=== PATIENT | female | born 1990 | race American Indian/Alaskan Native ===

== ENCOUNTER 2016-12-02 04:44 | Emergency (ER) | payer MEDICAID, OTHER ==
--- NOTE | 2016-12-02 04:54 | EDM.PDOC ---
ED HISTORY OF PRESENT ILLNESS - General Chief Complaint: Respiratory Problem Stated Complaint: TROUBLE BREATHING Time Seen by Provider: 12/02/16 04:50 Source of Information: Reports: Patient History Limitations: Reports: No limitations - History of Present Illness INITIAL COMMENTS - FREE TEXT/NARRATIVE: c/o increased cough tonight, using both inhaler and neb. no fevers, Exposed to strep. 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) Other OB/BYN History: C/S x 2 Musculoskeletal History: Reports: None Neurological History: Reports: None Psychiatric History: Reports: Anxiety, Panic attack Endocrine/Metabolic History: Reports: Obesity/BMI 30+ Hematologic History: Reports: None Immunologic History: Reports: None Oncologic (Cancer) History: Reports: None Dermatologic History: Reports: None Social & Family History - Family History Family Medical History: Noncontributory - Tobacco Use Smoking Status *Q: Current Some Day Smoker Years of Tobacco use: 8 Packs/Tins Daily: 3 Second Hand Smoke Exposure: Yes - Caffeine Use Caffeine Use: Reports: Coffee, Energy drinks, Soda - Alcohol Use Days Per Week of Alcohol Use: 1 Number of Drinks Per Day: 12 Total Drinks Per Week: 12 - Recreational Drug Use Recreational Drug Use: No Drug Use in Last 12 Months: Yes Recreational Drug Type: Reports: Methamphetamine Recreational Drug Use Frequency: Socially - Sexual History Sexual History: Reports: Sexually active - Living Situation & Occupation Living situation: Reports: with family Occupation: unemployed ED ROS GENERAL - Review of Systems Review Of Systems: See Below Constitutional: Reports: no symptoms HEENT: Reports: Sinus problem, Throat pain Respiratory: Reports: cough (for one week using inhaler and neb both.) Cardiovascular: Reports: No symptoms GI/Abdominal: Reports: No symptoms Musculoskeletal: Reports: no symptoms Skin: Reports: no symptoms Neurological: Reports: no symptoms ED EXAM, GENERAL - Physical Exam Exam: See Below Exam Limited By: No limitations General Appearance: alert, no apparent distress Ears: normal external exam, normal TMs Ear Exam: bilateral ear: TM normal Nose: normal inspection Throat/Mouth: Normal inspection Head: atraumatic, normocephalic Neck: normal inspection, non-tender, full range of motion Respiratory/Chest: no respiratory distress, lungs clear, normal breath sounds, other (dry cough). No: decreased breath sounds, crackles, rales, rhonchi, wheezing Cardiovascular: normal peripheral pulses, regular rate, rhythm (Female) Exam: Enlarged uterus Back Exam: normal inspection Extremities: normal inspection, normal range of motion Neurological: alert, oriented Psychiatric: normal affect Skin Exam: Warm, Dry, Intact, Normal color Course - Vital Signs Last Recorded V/S: Last Vital Signs Temp 96.2 F 12/02/16 04:48 Pulse 87 12/02/16 04:48 Resp 20 12/02/16 04:48 BP 125/84 12/02/16 04:48 Pulse Ox 100 12/02/16 04:48 - Orders/Labs/Meds Orders: Active Orders 24 hr Category Date Time Status CULTURE STREP A CONFIRMATION [RM] Routine Lab 12/02/16 05:01 Results STREP SCRN A RAPID W CULT CONF [] Routine Lab 12/02/16 05:01 Results Meds: Medications Discontinued Medications Generic Name Dose Route Start Last Admin Trade Name Zohreh PRN Reason Stop Dose Admin Guaifenesin 100 mg 12/02/16 06:20 12/02/16 06:24 Robitussin PO 12/02/16 06:21 100 mg ONETIME ONE Administration Departure - Departure Time of Disposition: 06:04 Disposition: Home, Self-Care 01 Condition: good Clinical Impression: Cough Upper respiratory infection Qualifiers: URI type: unspecified viral URI Qualified Code(s): J06.9 - Acute upper respiratory infection, unspecified Instructions: Upper Respiratory Infection, Adult, [id number] Forms: ED Department Discharge Additional Instructions: humidification albuterol nebulizer every 4 hours as needed avoid smoking areas clinic on Sunday robitussin 5 ml every 4 hours as needed for cough - My Orders Last 24 Hours: My Active Orders 12/02/16 05:01 CULTURE STREP A CONFIRMATION [RM] Routine STREP SCRN A RAPID W CULT CONF [] Routine - Assessment/Plan Last 24 Hours: My Active Orders 12/02/16 05:01 CULTURE STREP A CONFIRMATION [RM] Routine STREP SCRN A RAPID W CULT CONF [RM] Routine
[2016-12-02 04:56] VITALS: BP 125/84
[2016-12-02] MEDS ORDERED: guaiFENesin 100 MG/5 ML Soln 5 ML UD Cup PO ONE (06:20)
== END 2016-12-02 06:25 | disposition home or self-care (01) ==
LOC: DL.ED 04:44
DX: J06.9 Acute upper respiratory infection, unspecified (principal); F41.9 Anxiety disorder, unspecified; E66.9 Obesity, unspecified
CPT/HCPCS: 87081; 87430; 87804; 99283; A9270

== ENCOUNTER 2016-12-08 03:58 | Emergency (ER) | payer MEDICAID, OTHER ==
[2016-12-08 04:10] VITALS: BP 135/87
[2016-12-08] MEDS ORDERED: Benzonatate 100 MG Cap PO ONE (04:19)
[2016-12-08] MEDS ORDERED: Albuterol/Ipratropium 3.0-0.5 MG/3 ML Neb Soln NEB ONE (04:19)
[2016-12-08] MEDS ORDERED: methylPREDNISolone Sodium Succinate 125 MG/2 ML SDV IM ONE (04:19)
--- NOTE | 2016-12-08 04:30 | EDM.PDOC ---
ED HISTORY OF PRESENT ILLNESS - General Chief Complaint: Respiratory Problem Stated Complaint: CHEST CONGESTION Time Seen by Provider: 12/08/16 04:20 Source of Information: Reports: Patient History Limitations: Reports: No limitations - History of Present Illness INITIAL COMMENTS - FREE TEXT/NARRATIVE: states been sick with cough congestion past 2 weeks. been to ER & clinic had neg micro done here and given Rx @ clinic but still not better and been coughing till vomits. denies asthma Hx but was given neb since onset Sx. 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 (see below) Other OB/BYN History: C/S x 2 Musculoskeletal History: Reports: None Neurological History: Reports: None Psychiatric History: Reports: Anxiety, Panic attack Endocrine/Metabolic History: Reports: Obesity/BMI 30+ Hematologic History: Reports: None Immunologic History: Reports: None Oncologic (Cancer) History: Reports: None Dermatologic History: Reports: None Social & Family History - Family History Family Medical History: Noncontributory - Tobacco Use Smoking Status *Q: Current Some Day Smoker Years of Tobacco use: 8 Packs/Tins Daily: 3 Second Hand Smoke Exposure: Yes - Caffeine Use Caffeine Use: Reports: Soda - Alcohol Use Days Per Week of Alcohol Use: 1 Number of Drinks Per Day: 12 Total Drinks Per Week: 12 - Recreational Drug Use Recreational Drug Use: No Drug Use in Last 12 Months: Yes Recreational Drug Type: Reports: Methamphetamine Recreational Drug Use Frequency: Socially - Sexual History Sexual History: Reports: Sexually active - Living Situation & Occupation Living situation: Reports: with family Occupation: unemployed ED ROS GENERAL - Review of Systems Review Of Systems: ROS reveals no pertinent complaints other than HPI. ED EXAM, GENERAL - Physical Exam Exam: See Below Exam Limited By: No limitations General Appearance: alert, WD/WN, mild distress, other (cough spasms) Ears: hearing grossly normal Throat/Mouth: Normal voice, No airway compromise Head: atraumatic Neck: non-tender, full range of motion Respiratory/Chest: no respiratory distress, no accessory muscle use, decreased breath sounds, rhonchi, wheezing. No: retractions Cardiovascular: regular rate, rhythm GI/Abdominal: soft, non tender Neurological: alert, oriented, normal cognition, normal gait Psychiatric: tearful Skin Exam: Warm, Dry Lymphatic: no adenopathy Course - Vital Signs Last Recorded V/S: Last Vital Signs Temp 36.2 C 12/08/16 04:01 Pulse 118 H 12/08/16 04:01 Resp 23 H 12/08/16 04:01 BP 135/87 12/08/16 04:01 Pulse Ox 97 12/08/16 04:01 - Orders/Labs/Meds Orders: Active Orders 24 hr Category Date Time Status RT Aerosol Therapy [RC] ASDIRECTED Care 12/08/16 04:19 Ordered Meds: Medications Discontinued Medications Generic Name Dose Route Start Last Admin Trade Name Freq PRN Reason Stop Dose Admin Albuterol/Ipratropium 3 ml 12/08/16 04:19 12/08/16 04:27 Duoneb 3.0-0.5 Mg/3 Ml NEB 12/08/16 04:20 3 ml ONETIME ONE Administration Benzonatate 100 mg 12/08/16 04:19 12/08/16 04:27 Tessalon Perles PO 12/08/16 04:20 100 mg ONETIME ONE Administration Methylprednisolone Sodium Succinate 125 mg 12/08/16 04:19 12/08/16 04:27 Solu-Medrol IM 12/08/16 04:20 125 mg ONETIME ONE Administration - Re-Assessments/Exams Free Text/Narrative Re-Assessment/Exam: 12/08/16 04:30 s/p neb+solumedrol=much better. Departure - Departure Time of Disposition: 04:47 Disposition: Home, Self-Care 01 Condition: good Clinical Impression: Bronchospasm with bronchitis, acute Instructions: Bronchospasm, Adult, [id number] Forms: ED Department Discharge Additional Instructions: 1) rest as much as possible 2) drink lots of liquids 3) continue neb treatments 4) don't sleep flat at night rx given: medrol dospak tessalon pearles 100mg hs prn x 6 - My Orders Last 24 Hours: My Active Orders 12/08/16 04:19 RT Aerosol Therapy [RC] ASDIRECTED - Assessment/Plan Last 24 Hours: My Active Orders 12/08/16 04:19 RT Aerosol Therapy [RC] ASDIRECTED
== END 2016-12-08 05:25 | disposition home or self-care (01) ==
LOC: DL.ED 03:58
DX: J20.9 Acute bronchitis, unspecified (principal); F41.9 Anxiety disorder, unspecified; E66.9 Obesity, unspecified
CPT/HCPCS: 94640; 99283; A9270; J2930

== ENCOUNTER 2016-12-22 03:41 | Emergency (ER) | payer MEDICAID, OTHER ==
[2016-12-22 03:51] VITALS: BP 122/77
[2016-12-22] MEDS ORDERED: methylPREDNISolone Sodium Succinate 125 MG/2 ML SDV IVPUSH ONE (04:11)
--- NOTE | 2016-12-22 04:12 | EDM.PDOC ---
ED HISTORY OF PRESENT ILLNESS - General Chief Complaint: Respiratory Problem Stated Complaint: AMB Time Seen by Provider: 12/22/16 04:11 Source of Information: Reports: Patient History Limitations: Reports: No limitations - History of Present Illness INITIAL COMMENTS - FREE TEXT/NARRATIVE: 1 week h/o wheezing, been using nebs almost q2hr. feeling slightly better after EMS gave neb en route. 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) Other OB/BYN History: C/S x 2 Musculoskeletal History: Reports: None Neurological History: Reports: None Psychiatric History: Reports: Anxiety, Panic attack Endocrine/Metabolic History: Reports: Obesity/BMI 30+ Hematologic History: Reports: None Immunologic History: Reports: None Oncologic (Cancer) History: Reports: None Dermatologic History: Reports: None Social & Family History - Family History Family Medical History: Noncontributory - Tobacco Use Smoking Status *Q: Never Smoker Years of Tobacco use: 8 Packs/Tins Daily: 3 Second Hand Smoke Exposure: No - Caffeine Use Caffeine Use: Reports: Soda - Alcohol Use Days Per Week of Alcohol Use: 1 Number of Drinks Per Day: 12 Total Drinks Per Week: 12 - Recreational Drug Use Recreational Drug Use: No Drug Use in Last 12 Months: Yes Recreational Drug Type: Reports: Methamphetamine Recreational Drug Use Frequency: Socially - Sexual History Sexual History: Reports: Sexually active - Living Situation & Occupation Living situation: Reports: with family Occupation: unemployed ED ROS GENERAL - Review of Systems Review Of Systems: ROS reveals no pertinent complaints other than HPI. ED EXAM, GENERAL - Physical Exam Exam: See Below Exam Limited By: No limitations General Appearance: alert, WD/WN, mild distress, other (cough spasms) Ears: hearing grossly normal Throat/Mouth: Normal voice, No airway compromise Head: atraumatic Neck: non-tender, full range of motion Respiratory/Chest: no accessory muscle use, rhonchi, wheezing. No: accessory muscle use, retractions, splinting Cardiovascular: regular rate, rhythm GI/Abdominal: soft, non tender Neurological: alert, oriented, normal cognition, normal gait, no motor/sensory deficits Psychiatric: normal affect, normal mood Skin Exam: Warm, Dry Lymphatic: no adenopathy Course - Vital Signs Last Recorded V/S: Last Vital Signs Temp 36.2 C 12/22/16 03:50 Pulse 119 H 12/22/16 03:50 Resp 22 H 12/22/16 03:50 BP 122/77 12/22/16 03:50 Pulse Ox 99 12/22/16 03:50 - Orders/Labs/Meds Meds: Medications Discontinued Medications Generic Name Dose Route Start Last Admin Trade Name Freq PRN Reason Stop Dose Admin Methylprednisolone Sodium Succinate 125 mg 12/22/16 04:11 12/22/16 04:15 Solu-Medrol IVPUSH 12/22/16 04:12 125 mg ONETIME ONE Administration - Re-Assessments/Exams Free Text/Narrative Re-Assessment/Exam: 12/22/16 04:45 s/p IV solumed= much better now. Departure - Departure Time of Disposition: 04:45 Disposition: Home, Self-Care 01 Condition: good Clinical Impression: Exacerbation of asthma Instructions: Shortness of Breath, [id number] Forms: ED Department Discharge Additional Instructions: 1) continue nebs at home 2) follow up at clinic or recheck as needed rx given: medrol dospak
== END 2016-12-22 04:52 | disposition home or self-care (01) ==
LOC: DL.ED 03:41
DX: J45.901 Unspecified asthma with (acute) exacerbation (principal); E66.9 Obesity, unspecified
CPT/HCPCS: 96374; 99285; J2930

== ENCOUNTER 2017-04-28 22:16 | Inpatient (IN) | payer MEDICAID, OTHER ==
[~2017-04-28 22:16] MED LIST: Ketorolac 30 MG/ML SDV IVPUSH ONE; Morphine PF 1 MG/ML Amp ONE; Ondansetron 4 MG/2 ML SDV IV ONE; Oxytocin/Normal Saline 30 UNIT/500 ML BAG IV ONE; fentaNYL 100 MCG/2 ML SDV ONE
[2017-04-28] MEDS: Lactated Ringers 1,000 ML IV SCH ×2 (23:03→23:48)
[2017-04-28] MEDS ORDERED: ceFAZolin 2 GM in Premix Bag 1 BAG IV ONE (23:29)
[2017-04-28] MEDS ORDERED: Citric Acid/Sodium Citrate Solution 30 ML Cup PO ONE (23:29)
[2017-04-28] MEDS ORDERED: diphenhydrAMINE 50 MG/ML SDV IVPUSH PRN (23:30)
[2017-04-28] MEDS ORDERED: ePHEDrine 50 MG/ML SDV IVPUSH PRN (23:30)
[2017-04-28] MEDS ORDERED: Naloxone 2 MG/2 ML Syringe IVPUSH PRN (23:30)
[2017-04-28] MEDS ORDERED: Ondansetron 4 MG/2 ML SDV IV PRN (23:30)
[2017-04-28] MEDS ORDERED: Methylergonovine 0.2 MG/1 ML Amp IM PRN (23:30)
[2017-04-28] MEDS ORDERED: Oxytocin/Normal Saline 30 UNIT/500 ML BAG IV SCH (23:30)
[2017-04-28] MEDS ORDERED: Misoprostol 400 MCG (4 X 100 MCG TAB) RECTAL PRN (23:30)
[2017-04-28] MEDS ORDERED: Acetaminophen 325 MG Tab PO PRN (23:30)
[2017-04-28] MEDS ORDERED: Acetaminophen/oxyCODONE 325-5 MG Tab PO PRN (23:30)
[2017-04-28] MEDS ORDERED: Ibuprofen 800 MG Tab PO PRN (23:30)
[2017-04-28] MEDS ORDERED: Carboprost Tromethamine 250 MCG/1 ML Amp IM ONE (23:30)
[2017-04-28] MEDS ORDERED: Morphine PF 1 MG/ML Amp ONE (23:48)
[2017-04-28] MEDS ORDERED: Ondansetron 4 MG/2 ML SDV ONE (23:48)
[2017-04-28] MEDS ORDERED: fentaNYL 100 MCG/2 ML SDV ONE (23:48)
[2017-04-28] MEDS ORDERED: Phenylephrine 1% 10 MG/ML SDV ONE (23:49)
[2017-04-28] MEDS ORDERED: Ketorolac 30 MG/ML SDV ONE (23:49)
[2017-04-28] MEDS ORDERED: Propofol 200 MG/20 ML SDV ONE (23:49)
[2017-04-28] MEDS ORDERED: ePHEDrine 50 MG/ML SDV ONE (23:49)
[2017-04-28] MEDS ORDERED: Sodium Chloride 0.9% 100 ML ONE (23:49)
[2017-04-28] MEDS ORDERED: Succinylcholine 200 MG/10 ML MDV ONE (23:49)
[2017-04-28] MEDS ORDERED: Oxytocin/Normal Saline 60 UNIT/1,000 ML BAG ONE (23:53)
[2017-04-28] MEDS ORDERED: Oxytocin/Normal Saline 30 UNIT/500 ML BAG ONE (23:59)
[2017-04-29] MEDS ORDERED: Citric Acid/Sodium Citrate Solution 30 ML Cup ONE (00:07)
[2017-04-29] MEDS: Lactated Ringers 1,000 ML IV SCH ×3 (04:30→22:29)
[2017-04-29] MEDS: Ketorolac 30 MG/ML SDV IVPUSH SCH ×4 (07:32→19:27)
--- NOTE | 2017-04-29 08:44 | OR ---
DATE: 04/29/2017 ATTENDING SURGEON: Jonathan Osorio MD GREENS KEEPER SURGEON: Julio César Leo MD, PGY-III PREOPERATIVE DIAGNOSES: 1. Intrauterine at 37 weeks 2 days based on previous ultrasound. 2. Active labor. 3. Contractions with cervical change. 4. Previous section x2 with request for repeat low transverse section. 5. Group B Streptococcus negative. 6. Glucose intolerance. 7. Maternal anemia during . 8. History of reactive airway disease. 9. History of low-grade squamous intraepithelial lesion on Pap. 10.Positive tetrahydrocannabinol on urine drug screen at [facility] on 10/30/2016. 11. 3, para 2-0-0-2. POSTOPERATIVE DIAGNOSES: 1. Intrauterine at 37 weeks 2 days based on previous ultrasound. 2. Active labor. 3. Contractions with cervical change. 4. Previous section x2 with request for repeat low transverse section. 5. Group B Streptococcus negative. 6. Glucose intolerance. 7. Maternal anemia during . 8. History of reactive airway disease. 9. History of low-grade squamous intraepithelial lesion on Pap. 10.Positive tetrahydrocannabinol on urine drug screen at [facility] on 10/30/2016. 11. 3, para 3-0-0-3. 12.Viable female infant with scores of 7 and 8 at 1 and 5 minutes respectively. OPERATIVE PROCEDURE: Repeat low transverse section. ESTIMATED BLOOD LOSS: 600 mL. IV FLUIDS: LR 2500 mL and NS with pit at 300 mL. URINE OUTPUT: 100 mL. FINDINGS: Delivery of female infant with scores of 7 and 8 at 1 and 5 minutes respectively. Skin incision at 0043 hours. Uterine incision at 0051 hours. Viable female at 0052 hours. End of surgery at 0120 hours. INDICATION FOR PROCEDURE: Lilo Hernandez is a 27-year-old female with a history of repeat section, who presented in active labor with contractions and cervical change. Therefore, she was in active labor and recommendation for to proceed with section. Risks and benefits were discussed by myself and Dr. Osorio, and the patient wished to proceed with surgery at this time. DETAILS OF PROCEDURE: The patient was brought to the operating room. Spinal anesthetic was given. She was placed supine with a bump under her right side tilting her to the left. She was prepped and draped in standard sterile fashion. IV antibiotics were given. SCDs were placed. A procedural time-out was performed, and all were in agreement. She was prepped and draped in standard sterile fashion. A lower transverse abdominal incision was made through her previous scar. Electrocautery was used to dissect down to the muscle fascia. The muscle fascia was opened transversely using scissors curving cephalic at the lateral edges. The electrocautery was used to dissect the muscle off the anterior fascia superiorly and as well as inferiorly down to the pubic bone. The muscle was then in the midline. The peritoneum bluntly entered. A bladder flap was then created using Metzenbaum scissors and reflected inferiorly. A lower uterine incision was made through the outer layers and bluntly introduced into the uterine with return of clear amniotic fluid. The opening was then opened bluntly, and the infant was delivered. The cord was doubly clamped and cut, and the was handed off to Dr. Lin and nursery team. Pitocin was introduced, and uterine fundal massage was performed. The placenta was extracted without issue. There was no obvious placental tissue remaining. Lap pad used to debride the uterus. cervix was open. The uterus was closed in 2 layers, first running locking stitch with a #1 Vicryl, a second layer imbricating stitch with a #1 Vicryl. There was a small amount of inadequate hemostasis on the left side, which required a 2-0 vyslem-xb-oaofh stitch. Adequate hemostasis was obtained following the stitch. Andrew retractor was then removed. The gutters were thoroughly assessed, and there was no obvious blood in the gutters. The hemostasis was again reassured. The tubes and ovaries were normal appearing and without obvious pathology. One synofh-jy-kemlv 2-0 Vicryl was placed to reapproximate the muscle and peritoneum. The fascia was then closed with 0 looped PDS x2 starting in the edges and meeting in the middle and tying. The subcutaneous tissues were irrigated, and then the skin was stapled closed. Aquacel Ag dressing was placed. The patient was brought out of anesthesia and transferred to PACU in stable condition. Dr. Jonathan Osorio was present, scrubbed, and directed all portions of the procedure. [facility] /[id number] MTDD
[2017-04-29] MEDS: Simethicone 80 MG Tab.Chew PO PRN ×2 (09:23→19:29)
[2017-04-29] MEDS: Prenatal Multivitamin with Calcium/Folic Acid/Iron Tab PO SCH (09:23)
[2017-04-29] MEDS: Docusate Sodium 100 MG Cap PO PRN ×2 (09:23→19:30)
[2017-04-29] MEDS: Acetaminophen/oxyCODONE 325-5 MG Tab PO PRN (22:27)
[2017-04-30] MEDS: Acetaminophen/oxyCODONE 325-5 MG Tab PO PRN ×4 (03:01→20:49)
[2017-04-30] MEDS: Ibuprofen 800 MG Tab PO PRN ×2 (06:07→15:35)
[2017-04-30] MEDS ORDERED: FLOVENT 110 MCG INH PRN (08:15)
[2017-04-30] MEDS: Simethicone 80 MG Tab.Chew PO PRN ×2 (08:45→20:49)
[2017-04-30] MEDS: Prenatal Multivitamin with Calcium/Folic Acid/Iron Tab PO SCH (08:45)
[2017-04-30] MEDS: Docusate Sodium 100 MG Cap PO PRN ×2 (08:45→20:49)
--- NOTE | 2017-04-30 08:59 | HP ---
PATIENT IDENTIFICATION: Lilo Hernandez is a 27-year-old, G3, P2-0-0-2, intrauterine at 37 and 1/7 weeks, two previous , request repeat low-transverse , who presents with contractions. HISTORY OF PRESENT ILLNESS: The patient states contractions started about 1:00 p.m. this afternoon, felt in the lower abdomen, increasing in frequency and intensely to the point that they are coming every 6-7 minutes and possibly closer, rated 8 to 9/10, felt in the lower abdomen, radiating to the back, and severe enough that she is breathing through them. Nothing seems to make it better. Time makes it worse. She denies any spotting, bleeding, or leaking. To put this in context, she has impaired glucose tolerance, failed to do her 3- hour GTT. She is GBS negative and has anemia of with last hemoglobin 10.1 on 02/28/2017. She has had 2 previous C-sections. Positive THC on urine drug screen on 10/30/2016, at [facility]. Records were called for and reviewed as below and supplemented by the patient's history. OB HISTORY: 1. On 01/27/2011, 39-week, delivered low transverse , female, weighing 3572 g. 2. On 04/14/2008, delivered male, primary low transverse , 4026 g, male, complicated by gestational hypertension and failure to progress. ANTEPARTUM LABS: ABO blood type O positive. Negative antibody. Rubella immune. RPR nonreactive. Negative hepatitis B surface antigen. Negative hep C, HIV, GC, and Chlamydia. One-hour GTT was 143. Failed to complete her 3-hour GTT from what it appears. Last hemoglobin 10.1 on 02/28/2017. GBS was negative on 04/03/2017. ALLERGIES: None. MEDICATIONS: 1. vitamins. 2. Iron sulfate 325 b.i.d. has been recommended. SOCIAL HISTORY: Lives around the [place] area. Two children. No pets. Father of the baby is Michael Mendoza Jr. Former smoker, quit in November 10. Last alcohol use was September. Had 3 cans of beer. No drug use. PAST MEDICAL/PAST SURGICAL HISTORY: as noted above. She has had a history of Chlamydia and Trichomonas in the past. She had LSIL on recent Pap smear during this . She has had 2 previous C-sections as above. History of reactive airway disease. FAMILY HISTORY: Asthma in her mother. Diabetes in her father. Negative family history of defects, anesthesia problems, or bleeding problems. REVIEW OF SYSTEMS: Otherwise, reviewed felt to be noncontributory. The patient denies any headaches, visual changes, or upper abdominal pain. She denies any spotting, bleeding, leaking, problems with bowel or bladder, fever, chills, sweats, rashes, or other concerns. OBJECTIVE: Vital Signs: Blood pressure 135/84, recheck 138/86; heart rate between 105 and 110; and temperature 98.8. Glucose was 100. Appearance: Female appears her stated age, acting appropriate for age. Nontoxic in appearance. Breathing through contractions, but answering questions appropriately in between. Head: Atraumatic. EOMs intact. PERRLA. No scleral icterus. No obvious otorhinorrhea. Mucous membranes moist. Neck: No obvious tenderness. Lungs: Clear to auscultation bilaterally. No increased work of breathing. Heart: S1, S2. Regular rate and rhythm. Abdomen: Obese, monitors applied. Gravid, Perry's indeterminate, nontender, nondistended. Bowel sounds positive. No other organomegaly, pulsatile masses, or obvious hernias. No rebound, rigidity, or guarding. Pfannenstiel type scar noted. : Normal external female genitalia. Normal position and presentation of urethra. Vaginal exam by my exam was 3 cm, 75% effaced, -1 station, vertex suspected. Previous evaluation by nurse revealed her to be 2 cm. Tocometer reveals contractions as close as 4 minutes apart currently. heart tones in the 125-130 range and felt to be reactive and reassuring. Pending is a CBC, BIO-RAD, and type and screen. ASSESSMENT: 1. Intrauterine at 37 and 1, almost 37 and 2/7 weeks, confirmed with 22-week ultrasound. 2. Active labor with contractions with cervical change. 3. Previous x2, requests repeat low transverse . 4. Group B Streptococcus negative. 5. Impaired glucose tolerance. 6. History of maternal anemia. CBC will be drawn. 7. History of reactive airway disease. 8. 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 9. Positive THC on urine drug screen at [facility] 10/30/2016, We will repeat BIO-Desall today. 10.G3, P2-0-0-2. PLAN: I discussed with the patient due to the fact she is in labor, 2 previous C-sections, request repeat low transverse , we will proceed to the OR as soon as crew is ready and available. I did discuss the risks, benefits, alternatives, and complications of including, but not limited to, infection, bleeding, damage to internal organs such as bowel, bladder, tubes, uterus, ovaries, sometimes fetus rarely needing a blood transfusion or further surgery, and rarer material or . She understands and agrees and wishes to proceed. Verbal and written consents were obtained. Questions were answered. We will proceed as soon as OR crew is ready and available. [facility] /[id number]
--- NOTE | 2017-04-30 09:53 | PN ---
DATE: 04/30/2017 SUBJECTIVE: The patient did well overnight. No acute events. She has had minimal pain. She is up moving about in her room. Her Abraham catheter is still in place. It will be removed later today. She is moving without issues, again tolerating a diet without issues. No acute events since surgery. OBJECTIVE: Vital Signs: Stable. Afebrile. General: Alert and oriented x3. Lying in her hospital bed upon entering the room. No acute distress. Pulmonary: No tachypnea or cyanosis noted. No increased working of breath. Cardiac: Regular rate and rhythm. Abdomen: Soft. Appropriately tender on the left side. Mild shadowing noted on the dressing on the right side. Pelvic: Uterus at approximately the level of the umbilicus. Extremities: Trace peripheral edema noted. No calf tenderness. Negative Julian's. ASSESSMENT AND PLAN: Lilo Hernandez is postoperative day #1, status post repeat section following cervical change and contractions. She continues to do well at this time. We will remove her Abraham catheter, IV lock her fluids. Continue present management at this time. She is requesting discharge tomorrow for a family as long as everything continues to remain normal. To be discussed with Dr. Jonathan Osorio. seen and agreed [facility] /[id number] ANGELA
--- NOTE | 2017-04-30 11:52 | OBOUT ---
DATE: 04/28/2017 DATE AND TIME OF NST: Date: 04/28/2017. Time: 2225 hours to 2243 hours. REASON FOR NST: 1. Intrauterine at 37-1/2 weeks confirmed with 22-week ultrasound. 2. Active labor with contractions and cervical change. 3. Previous section x2 with request for repeat low transverse section. 4. Group B Streptococcus negative. 5. Impaired glucose tolerance. 6. Maternal anemia. 7. History of reactive airway disease. 8. 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 9. Positive tetrahydrocannabinol on urine drug screen at [facility] on 10/30/2016. 10. 3, para 2-0-0-2. NST INTERPRETATION: During this time period, the heart tone baseline is approximately 130, and there are at least two 15 x 15 beat per minute accelerations, making this strip reactive, it is also noted to be reassuring. Tocometer reveals potential of 2 contractions, which the patient feels. ASSESSMENT: 1. Nonstress test - reactive and reassuring. 2. Tocometer with contractions. PLAN: Please see admit history and physical for further details. We will proceed to the OR as soon as crew is ready and available. [facility] /[id number]
--- NOTE | 2017-04-30 12:27 | PCM.POSTAN ---
POST ANESTHESIA ASSESSMENT - MENTAL STATUS Mental Status: Alert - VITAL SIGNS Pulse Rate: 82 SaO2: 100 Resp Rate: 18 Blood Pressure: 125/71 Temperature: 36.8 C - RESPIRATORY Respiratory Status: Respiratory Rate WNL - CARDIOVASCULAR CV Status: Pulse Rate WNL - GASTROINTESTINAL GI Status: No Symptoms - POST OP HYDRATION Hydration Status: Adequate & Stable - OBSERVATIONS Free Text/Narrative:: pt without c/o. No PDPH, no PONV, no sustained paresthesias, no c/o pain. No post anesthesia complications noted.
[2017-05-01] MEDS: Ibuprofen 800 MG Tab PO PRN ×2 (00:53→10:30)
[2017-05-01] MEDS: Acetaminophen/oxyCODONE 325-5 MG Tab PO PRN ×3 (00:54→10:30)
--- NOTE | 2017-05-01 08:55 | DISCH ---
DATE OF ADMISSION: 04/29/2017 DATE OF DISCHARGE: 05/01/2017 DISCHARGE DIAGNOSES: 1. Intrauterine at 37 weeks 2 days based on previous ultrasound. 2. Active labor. 3. Contractions with cervical change. 4. Previous section x2. Request for repeat low-transverse . 5. Group B Streptococcus negative. 6. Glucose intolerance. 7. Maternal anemia during . 8. History of reactive airway disease. 9. History of low-grade squamous intraepithelial lesion on Pap. 10.Positive THC on urine drug screen at [facility] on 10/30/2016. 11. 3, Para 3-0-0-3. 12.Viable female infant with scores of 7 and 8 at 1 and 5 minutes respectively. DIET AT DISCHARGE: Regular as tolerated. ACTIVITY: Limited activity until followup appointment. No lifting more than 10 pounds. PROCEDURE: Repeat low transverse section. DISCHARGE PHYSICAL EXAMINATION: General: Alert and oriented x3 without any acute distress. She is up in the bathroom, fixing her hair this morning. Pulmonary: No tachypnea or cyanosis noted. No increased working of breath. Cardiac: Regular rate and rhythm. Abdomen: Soft with tenderness along the left side. Nondistended. Uterus is approximately at the level of the umbilicus. Shadowing present on the dressing, minimally increased from previous exam. Extremities: Trace pedal edema. MEDICATIONS: See medication discharge list. HOSPITAL COURSE: Lilo Hernandez is a previous repeat low-transverse section, who came in with cervical change and contractions. Due to this, it was recommended to have a repeat low-transverse section in which she was agreeable following discussion of risks and benefits. She is taken for repeat low-transverse section without issues. Postoperatively, her Abraham was removed and she was urinating without issue. Her pain was well controlled. She was tolerating diet without nausea or vomiting. She is up, ambulating without any issues or new pains. She was discharged home on postoperative day #2 to home. We will have her follow up in 2 days time for staple removal in the office with Dr. Osorio. Discharge instructions given verbally to the patient prior to discharge. seen and agreed-DIEGO NICHELLE /[id number] ANGELA
[2017-05-01 09:02] VITALS: BP 129/84
[2017-05-01] MEDS: Docusate Sodium 100 MG Cap PO PRN (10:30)
[2017-05-01] MEDS: Prenatal Multivitamin with Calcium/Folic Acid/Iron Tab PO SCH (10:30)
== END 2017-05-01 10:50 | disposition home or self-care (01) | DRG 765 ==
LOC: DL.OBCHECK 22:16 → DL.OB 23:30 → OBSVTOIN 04-29 00:52
PROVIDERS: ADMIT Family Medicine; ATTEND Family Medicine
PROC: 10D00Z1 Extraction of Products of Conception, Low, Open Approach (ICD-10-PCS; principal; 2017-04-29)
PROC: 4A1HXFZ Monitoring of Products of Conception, Cardiac Rhythm, External Approach (ICD-10-PCS; 2017-04-29)
PROC: 3E0R3BZ Introduction of Anesthetic Agent into Spinal Canal, Percutaneous Approach (ICD-10-PCS; 2017-04-29)
DX: O34.211 Maternal care for low transverse scar from previous cesarean delivery (principal); O99.324 Drug use complicating childbirth; O99.02 Anemia complicating childbirth; O75.82 Onset (spontaneous) of labor after 37 completed weeks of gestation but before 39 completed weeks gestation, with delivery by (planned) cesarean section; F12.90 Cannabis use, unspecified, uncomplicated; O99.814 Abnormal glucose complicating childbirth; Z37.0 Single live birth; Z3A.39 39 weeks gestation of pregnancy
CPT/HCPCS: 01961; 36415; 80305; 82962; 85027; 86850; 86900; 86901; 94010; A9270-GY; J0690; J1885; J2274; J2405; J2590; J3010; J7120

== ENCOUNTER 2017-05-06 02:44 | Emergency (ER) | payer MEDICAID, OTHER ==
[2017-05-06 02:53] VITALS: BP 146/88
[2017-05-06] MEDS ORDERED: HYDROmorphone 1 MG/ML Syringe IVPUSH ONE (03:51)
[2017-05-06] MEDS ORDERED: Ondansetron 4 MG/2 ML SDV IV ONE (03:51)
[2017-05-06 03:58] LABS: CHLORIDE,CL 109 mmol/L (101-111); SODIUM,NA 141 mmol/L (135-145)
[2017-05-06] MEDS ORDERED: Ciprofloxacin 500 MG Tab PO ONE (04:05)
[2017-05-06] MEDS ORDERED: Albuterol 0.083% 2.5 MG/3 ML Neb Soln NEB ONE (04:54)
--- NOTE | 2017-05-06 05:02 | EDM.PDOC ---
ED HPI GENERAL MEDICAL PROBLEM - General Chief Complaint: Back Pain or Injury Stated Complaint: INCISION FROM CSECTION IRRITATED Time Seen by Provider: 05/06/17 02:50 Source of Information: Reports: Patient History Limitations: Reports: No Limitations - History of Present Illness INITIAL COMMENTS - FREE TEXT/NARRATIVE: ED with c/o incisional pain, difficulty breathing worse when lying flat, fever and low back pain. C section on 04-28-17. Noted swelling to lower extremities unchanged since discharge. Left Lower Abdomen Pain Score (Numeric/FACES): 8 - Related Data Allergies Allergy/AdvReac Type Severity Reaction Status Date / Time No Known Allergies Allergy Verified 05/06/17 02:49 Home Meds: Home Meds Vit W-Ca,Fe,FA(<1 mg) [ Vitamins] 1 tab PO DAILY 04/28/17 [ History] Past Medical History - Past Health History Medical/Surgical History: Denies Medical/Surgical History HEENT History: Reports: None Cardiovascular History: Reports: None Respiratory History: Reports: Other (See Below) Other Respiratory History: RAD Gastrointestinal History: Reports: None Genitourinary History: Reports: None [employer] [place] History: Reports: Other OB/BYN History: hx abnormal pap and colposcopy Musculoskeletal History: Reports: None Neurological History: Reports: None Psychiatric History: Reports: Anxiety, Panic Attack Endocrine/Metabolic History: Reports: Obesity/BMI 30+ Hematologic History: Reports: None Immunologic History: Reports: None Oncologic (Cancer) History: Reports: None Dermatologic History: Reports: None - Past Surgical History Female Surgical History: Reports: Section Social & Family History - Family History Family Medical History: Noncontributory - Tobacco Use Smoking Status *Q: Former Smoker Years of Tobacco use: 5 Packs/Tins Daily: 0.1 Used Tobacco, but Quit: Yes Month Tobacco Last Used: 9 Second Hand Smoke Exposure: Yes - Caffeine Use Caffeine Use: Reports: None - Alcohol Use Days Per Week of Alcohol Use: 1 Number of Drinks Per Day: 6 Total Drinks Per Week: 6 Date of Last Drink: 05/04/17 Time of Last Drink: 20:00 - Recreational Drug Use Recreational Drug Use: No Drug Use in Last 12 Months: Yes Recreational Drug Type: Reports: Marijuana/Hashish Recreational Drug Use Frequency: Socially - Sexual History Sexual History: Reports: Sexually Active - Living Situation & Occupation Living situation: Reports: with Family Occupation: Unemployed ED ROS GENERAL - Review of Systems Review Of Systems: ROS reveals no pertinent complaints other than HPI. ED EXAM, GENERAL - Physical Exam Exam: See Below Exam Limited By: No Limitations General Appearance: Alert, Moderate Distress (tearful, walking stooped over. ) Eye Exam: Bilateral Eye: PERRL Ears: Normal External Exam Nose: Normal Inspection Throat/Mouth: Normal Inspection Head: Atraumatic, Normocephalic Neck: Normal Inspection, Full Range of Motion Respiratory/Chest: No Respiratory Distress, Lungs Clear, Normal Breath Sounds Cardiovascular: Normal Peripheral Pulses, Regular Rate, Rhythm GI/Abdominal: Normal Bowel Sounds, Soft, Tender, Other (horizontal low abdominal surgical incision. lateral edges closed, mid incision open, 4x4 saturated serosangunous drainage, no odor. ) Back Exam: Normal Inspection, Full Range of Motion Extremities: Pedal Edema (3+ bilateral to ankle) Neurological: Alert, Oriented, Normal Cognition Psychiatric: Tearful Skin Exam: Warm, Dry, Intact, Normal Color Course - Vital Signs Last Recorded V/S: Last Vital Signs Temp 97.4 F 05/06/17 02:49 Pulse 86 05/06/17 02:49 Resp 18 05/06/17 02:49 BP 146/88 H 05/06/17 02:49 Pulse Ox 99 05/06/17 02:49 - Orders/Labs/Meds Orders: Active Orders 24 hr Category Date Time Status RT Aerosol Therapy [RC] ASDIRECTED Care 05/06/17 04:54 Active CXR [Chest 1V Frontal] [CR] Urgent Exams 05/06/17 03:31 Ordered CXR [Chest 2V] [CR] Urgent Exams 05/06/17 03:31 Taken CULTURE BLOOD [BC] Stat Lab 05/06/17 03:30 Received CULTURE BLOOD [BC] Stat Lab 05/06/17 03:35 Results CULTURE URINE [RM] Stat Lab 05/06/17 02:57 Received CULTURE URINE [RM] Stat Lab 05/06/17 05:03 Ordered CULTURE WOUND [RM] Routine Lab 05/06/17 03:21 Received Blood Culture x2 Reflex Set [OM.PC] Stat Oth 05/06/17 03:25 Ordered Labs: Laboratory Tests 05/06/17 05/06/17 05/06/17 Range/Units 02:57 03:30 03:30 WBC 10.0 (5.0-10.0) 10^3/uL RBC 3.95 L (4.2-5.4) 10^6/uL Hgb 8.6 L (12.0-16.0) g/dL Hct 29.3 L (37.0-47.0) % MCV 74.2 L (80-100) fL MCH 21.8 L (27.0-34.0) pg MCHC 29.4 L (33.0-35.0) g/dL Plt Count 377 (150-450) 10^3/uL Neut % (Auto) 68.3 (42.2-75.2) % Lymph % (Auto) 21.0 (20.5-50.1) % [place] % (Auto) 5.8 (2-8) % Eos % (Auto) 4.6 H (1.0-3.0) % Baso % (Auto) 0.3 (0.0-1.0) % Sodium 141 (135-145) mmol/L Potassium 4.0 (3.6-5.0) mmol/L Chloride 109 (101-111) mmol/L Carbon Dioxide 21.0 (21.0-31.0) mmol/L Anion Gap 15.0 BUN 14 (7-18) mg/dL Creatinine 0.6 (0.6-1.3) mg/dL Est Cr Clr Drug Dosing 120.54 mL/min Estimated GFR (MDRD) > 60 BUN/Creatinine Ratio 23.33 Glucose 104 (74-105) mg/dL Lactic Acid (0.5-2.2) mmol/L Calcium 8.1 L (8.4-10.2) mg/dl Magnesium 1.7 L (1.8-2.5) mg/dL Total Bilirubin 0.3 (0.2-1.0) mg/dL AST 21 (10-42) IU/L ALT 24 (10-60) IU/L Alkaline Phosphatase 86 (42-121) IU/L Total Protein 6.1 L (6.7-8.2) g/dl Albumin 2.4 L (3.2-5.5) g/dl Globulin 3.7 Albumin/Globulin Ratio 0.65 Urine Color Yellow (YELLOW) Urine Appearance Slightly cloudy (CLEAR) Urine pH 6.5 (5.0-9.0) Ur Specific Rankin 1.025 (1.005-1.030) Urine Protein 30 H (NEGATIVE) Urine Glucose (UA) Negative (NEGATIVE) Urine Ketones Negative (NEGATIVE) Urine Occult Blood Large H (NEGATIVE) Urine Nitrite Negative (NEGATIVE) Urine Bilirubin Negative (NEGATIVE) Urine Urobilinogen 0.2 (0.2-1.0) mg/dL Ur Leukocyte Esterase Small H (NEGATIVE) Urine RBC 30-40 H /HPF Urine WBC 30-40 H (0-5/HPF) /HPF Ur Epithelial Cells Few /HPF Urine Bacteria Many H (0-FEW/HPF) /HPF Urine Yeast Few H (0/HPF) /HPF 05/06/17 Range/Units 03:30 WBC (5.0-10.0) 10^3/uL RBC (4.2-5.4) 10^6/uL Hgb (12.0-16.0) g/dL Hct (37.0-47.0) % MCV (80-100) fL MCH (27.0-34.0) pg MCHC (33.0-35.0) g/dL Plt Count (150-450) 10^3/uL Neut % (Auto) (42.2-75.2) % Lymph % (Auto) (20.5-50.1) % [place] % (Auto) (2-8) % Eos % (Auto) (1.0-3.0) % Baso % (Auto) (0.0-1.0) % Sodium (135-145) mmol/L Potassium (3.6-5.0) mmol/L Chloride (101-111) mmol/L Carbon Dioxide (21.0-31.0) mmol/L Anion Gap BUN (7-18) mg/dL Creatinine (0.6-1.3) mg/dL Est Cr Clr Drug Dosing mL/min Estimated GFR (MDRD) BUN/Creatinine Ratio Glucose (74-105) mg/dL Lactic Acid 0.9 (0.5-2.2) mmol/L Calcium (8.4-10.2) mg/dl Magnesium (1.8-2.5) mg/dL Total Bilirubin (0.2-1.0) mg/dL AST (10-42) IU/L ALT (10-60) IU/L Alkaline Phosphatase (42-121) IU/L Total Protein (6.7-8.2) g/dl Albumin (3.2-5.5) g/dl Globulin Albumin/Globulin Ratio Urine Color (YELLOW) Urine Appearance (CLEAR) Urine pH (5.0-9.0) Ur Specific Rankin (1.005-1.030) Urine Protein (NEGATIVE) Urine Glucose (UA) (NEGATIVE) Urine Ketones (NEGATIVE) Urine Occult Blood (NEGATIVE) Urine Nitrite (NEGATIVE) Urine Bilirubin (NEGATIVE) Urine Urobilinogen (0.2-1.0) mg/dL Ur Leukocyte Esterase (NEGATIVE) Urine RBC /HPF Urine WBC (0-5/HPF) /HPF Ur Epithelial Cells /HPF Urine Bacteria (0-FEW/HPF) /HPF Urine Yeast (0/HPF) /HPF Meds: Medications Discontinued Medications Generic Name Dose Route Start Last Admin Trade Name Freq PRN Reason Stop Dose Admin Albuterol 2.5 mg 05/06/17 04:54 05/06/17 05:02 Proventil Neb Soln NEB 05/06/17 04:55 2.5 mg ONETIME ONE Administration Ciprofloxacin 500 mg 05/06/17 04:05 05/06/17 04:12 Ciprofloxacin Hcl PO 05/06/17 04:06 500 mg ONETIME ONE Administration Hydromorphone HCl 1 mg 05/06/17 03:51 05/06/17 04:12 Dilaudid IVPUSH 05/06/17 03:52 1 mg ONETIME ONE Administration Ondansetron HCl 4 mg 05/06/17 03:51 05/06/17 04:12 Zofran IV 05/06/17 03:52 4 mg ONETIME ONE Administration - Radiology Interpretation Free Text/Narrative:: Normal CXR Departure - Departure Time of Disposition: 05:09 Disposition: Home, Self-Care 01 Condition: Fair Clinical Impression: Pain at surgical incision UTI (urinary tract infection) Qualifiers: Urinary tract infection type: acute cystitis Hematuria presence: without hematuria Qualified Code(s): N30.00 - Acute cystitis without hematuria - Discharge Information Instructions: Incision Care, [id number] Forms: ED Department Discharge Additional Instructions: cipro 500mg one twice daily for one week change incision dressings at least 3 times daily or as moist ibuprofen 600mg every 6 hours as needed for pain, may alternate with tylenol every 4 hours follow up with primary care this week - My Orders Last 24 Hours: My Active Orders 05/06/17 02:57 CULTURE URINE [RM] Stat 05/06/17 03:21 CULTURE WOUND [RM] Routine 05/06/17 03:25 Blood Culture x2 Reflex Set [OM.PC] Stat 05/06/17 03:30 CULTURE BLOOD [BC] Stat 05/06/17 03:31 CXR [Chest 1V Frontal] [CR] Urgent CXR [Chest 2V] [CR] Urgent 05/06/17 03:35 CULTURE BLOOD [BC] Stat 05/06/17 04:54 RT Aerosol Therapy [RC] ASDIRECTED 05/06/17 05:03 CULTURE URINE [RM] Stat - Assessment/Plan Last 24 Hours: My Active Orders 05/06/17 02:57 CULTURE URINE [RM] Stat 05/06/17 03:21 CULTURE WOUND [RM] Routine 05/06/17 03:25 Blood Culture x2 Reflex Set [OM.PC] Stat 05/06/17 03:30 CULTURE BLOOD [BC] Stat 05/06/17 03:31 CXR [Chest 1V Frontal] [CR] Urgent CXR [Chest 2V] [CR] Urgent 05/06/17 03:35 CULTURE BLOOD [BC] Stat 05/06/17 04:54 RT Aerosol Therapy [RC] ASDIRECTED 05/06/17 05:03 CULTURE URINE [RM] Stat
== END 2017-05-06 05:17 | disposition home or self-care (01) ==
LOC: DL.ED 02:44
DX: O90.89 Other complications of the puerperium, not elsewhere classified (principal); O86.22 Infection of bladder following delivery; R10.30 Lower abdominal pain, unspecified; N30.00 Acute cystitis without hematuria; F41.9 Anxiety disorder, unspecified; E66.9 Obesity, unspecified; Z79.899 Other long term (current) drug therapy; Z87.891 Personal history of nicotine dependence
CPT/HCPCS: 36415; 71020; 80053; 81001; 83605; 83735; 85025; 87040; 87070; 87086; 94640; 99284; A9270; J1170; J2405; J7620; 87077; 87186

== ENCOUNTER 2017-11-01 21:20 | Emergency (ER) | payer MEDICAID, OTHER ==
[2017-11-01] MEDS ORDERED: Albuterol/Ipratropium 3.0-0.5 MG/3 ML Neb Soln NEB ONE ×2 (21:49→23:44)
[2017-11-01] MEDS ORDERED: methylPREDNISolone Sodium Succinate 125 MG/2 ML SDV IVPUSH ONE (21:49)
[2017-11-01] MEDS ORDERED: Sodium Chloride 0.9% 10 ML Syringe FLUSH PRN (21:50)
[2017-11-01] MEDS ORDERED: Magnesium Sulfate/Water 2 GM in Premix Bag 1 BAG IV ONE (21:51)
--- NOTE | 2017-11-01 21:51 | EDM.PDOC ---
ED HPI GENERAL MEDICAL PROBLEM - General Chief Complaint: Respiratory Problem Stated Complaint: [id number] HARD TO BREATH NOT SURE IF ASHMA Time Seen by Provider: 11/01/17 21:37 Source of Information: Reports: Patient, RN, RN Notes Reviewed History Limitations: Reports: No Limitations - History of Present Illness INITIAL COMMENTS - FREE TEXT/NARRATIVE: Pt presents to the ER with c/o difficulty breathing. She states she has been using her nebulizer every 2 hours. She states she also has inhalers. She states she has had a cough for a few weeks and feels she has been ill for about a month. She states her breathing has gotten worse since yesterday. She admits to fever and chills at times, denies N/V/D. She states she is approximately 4 weeks . LMP: 2nd week in August. Onset: Gradual Treatments INDEPENDENT JEWELER: Reports: Other (see below) Other Treatments INDEPENDENT JEWELER: Albuterol Nebulizer Left Upper Posterior Back Pain Score (Numeric/FACES): 8 - Related Data Allergies Allergy/AdvReac Type Severity Reaction Status Date / Time No Known Allergies Allergy Verified 11/01/17 21:33 Home Meds: Home Meds Vit W-Ca,Fe,FA(<1 mg) [ Vitamins] 1 tab PO DAILY 04/28/17 [ History] Past Medical History - Past Health History Medical/Surgical History: Denies Medical/Surgical History HEENT History: Reports: None Cardiovascular History: Reports: None Respiratory History: Reports: Other (See Below) Other Respiratory History: RAD Gastrointestinal History: Reports: None Genitourinary History: Reports: None [employer] History: Reports: Other OB/BYN History: hx abnormal pap and colposcopy Musculoskeletal History: Reports: None Neurological History: Reports: None Psychiatric History: Reports: Anxiety, Panic Attack Endocrine/Metabolic History: Reports: Obesity/BMI 30+ Hematologic History: Reports: None Immunologic History: Reports: None Oncologic (Cancer) History: Reports: None Dermatologic History: Reports: None - Past Surgical History Female Surgical History: Reports: Section Social & Family History - Family History Family Medical History: Noncontributory - Tobacco Use Smoking Status *Q: Never Smoker Years of Tobacco use: 5 Packs/Tins Daily: 0.1 Used Tobacco, but Quit: Yes Month Tobacco Last Used: 9 Second Hand Smoke Exposure: Yes - Caffeine Use Caffeine Use: Reports: None - Alcohol Use Days Per Week of Alcohol Use: 1 Number of Drinks Per Day: 6 Total Drinks Per Week: 6 - Recreational Drug Use Recreational Drug Use: No Drug Use in Last 12 Months: Yes Recreational Drug Type: Reports: Marijuana/Hashish Recreational Drug Use Frequency: Socially - Sexual History Sexual History: Reports: Sexually Active - Living Situation & Occupation Living situation: Reports: with Family Occupation: Unemployed ED ROS GENERAL - Review of Systems Review Of Systems: ROS reveals no pertinent complaints other than HPI. ED EXAM, GENERAL - Physical Exam Exam: See Below Exam Limited By: No Limitations General Appearance: Alert, WD/WN, Moderate Distress Eye Exam: Bilateral Eye: EOMI, Normal Inspection, PERRL Ears: Normal External Exam, Hearing Grossly Normal Nose: Normal Inspection, Normal Mucosa, No Blood Throat/Mouth: Normal Inspection, Normal Voice, No Airway Compromise Head: Atraumatic, Normocephalic Neck: Normal Inspection, Supple, Non-Tender, Full Range of Motion Respiratory/Chest: Respiratory Distress, Decreased Breath Sounds, Wheezing ( inspiratory and expiratory) Cardiovascular: Normal Peripheral Pulses, Regular Rate, Rhythm, No Edema, No Gallop, No JVD, No Murmur, No Rub Peripheral Pulses: 2+: Radial (L), Radial (R) GI/Abdominal: Normal Bowel Sounds, Soft, Non-Tender, No Organomegaly, No Distention, No Abnormal Bruit, No Mass (Female) Exam: Deferred Rectal (Female) Exam: Deferred Back Exam: Normal Inspection, Full Range of Motion, NT Extremities: Normal Inspection, Normal Range of Motion, Non-Tender, Normal Capillary Refill, No Pedal Edema Neurological: Alert, Oriented, CN II-XII Intact, Normal Cognition, Normal Gait, Normal Reflexes, No Motor/Sensory Deficits Psychiatric: Normal Affect, Normal Mood Skin Exam: Warm, Dry, Intact, Normal Color, No Rash Lymphatic: No Adenopathy Course - Vital Signs Last Recorded V/S: Last Vital Signs Temp 98.1 F 11/01/17 21:27 Pulse 110 H 11/01/17 23:49 Resp 21 H 11/01/17 23:49 BP 128/78 11/01/17 23:49 Pulse Ox 97 11/01/17 23:49 - Orders/Labs/Meds Orders: Active Orders 24 hr Category Date Time Status Peripheral IV Care [RC] . DIRECTED Care 11/01/17 21:50 Active RT Aerosol Therapy [RC] ASDIRECTED Care 11/01/17 21:50 Active RT Aerosol Therapy [RC] ASDIRECTED Care 11/01/17 23:45 Active Azithromycin [Zithromax] Med 11/02/17 00:28 Once 500 mg PO ONETIME ONE Sodium Chloride 0.9% [Saline Flush] Med 11/01/17 21:50 Active 10 ml FLUSH ASDIRECTED PRN Peripheral IV Insertion Adult [OM.PC] Stat Oth 11/01/17 21:49 Ordered Medication Orders Azithromycin (Zithromax) 500 mg PO ONETIME ONE Stop: 11/02/17 00:29 Sodium Chloride (Saline Flush) 10 ml FLUSH ASDIRECTED PRN PRN Reason: Keep Vein Open Meds: Medications Generic Name Dose Route Start Last Admin Trade Name Freq PRN Reason Stop Dose Admin Azithromycin 500 mg 11/02/17 00:28 Zithromax PO 11/02/17 00:29 ONETIME ONE Sodium Chloride 10 ml 11/01/17 21:50 Saline Flush FLUSH ASDIRECTED PRN Keep Vein Open Discontinued Medications Generic Name Dose Route Start Last Admin Trade Name Freq PRN Reason Stop Dose Admin Albuterol/Ipratropium 3 ml 11/01/17 21:49 11/01/17 21:56 Duoneb 3.0-0.5 Mg/3 Ml NEB 11/01/17 21:50 3 ml ONETIME ONE Administration Albuterol/Ipratropium 3 ml 11/01/17 23:44 11/01/17 23:51 Duoneb 3.0-0.5 Mg/3 Ml NEB 11/01/17 23:45 3 ml ONETIME ONE Administration Magnesium Sulfate 2 gm/ Premix 50 mls @ 25 mls/hr 11/01/17 21:51 11/01/17 22: 10 IV 11/01/17 23:50 25 mls/hr ONETIME ONE Administration Methylprednisolone Sodium Succinate 125 mg 11/01/17 21:49 11/01/17 22:04 Solu-Medrol IVPUSH 11/01/17 21:50 125 mg ONETIME ONE Administration Departure - Departure Time of Disposition: 00:16 Disposition: Home, Self-Care 01 Condition: Fair Clinical Impression: Acute asthma - Discharge Information Instructions: Asthma, Adult, Shortness of Breath, [id number] Forms: ED Department Discharge Additional Instructions: RX: Azithromycin and Medrol Dose pack Follow up in the clinic tomorrow Use nebulizers and inhalers as needed. - My Orders Last 24 Hours: My Active Orders 11/01/17 21:49 Peripheral IV Insertion Adult [OM.PC] Stat 11/01/17 21:50 Peripheral IV Care [RC] . DIRECTED RT Aerosol Therapy [RC] ASDIRECTED Sodium Chloride 0.9% [Saline Flush] 10 ml FLUSH ASDIRECTED PRN 11/01/17 23:45 RT Aerosol Therapy [RC] ASDIRECTED 11/02/17 00:28 Azithromycin [Zithromax] 500 mg PO ONETIME ONE - Assessment/Plan Last 24 Hours: My Active Orders 11/01/17 21:49 Peripheral IV Insertion Adult [OM.PC] Stat 11/01/17 21:50 Peripheral IV Care [RC] . DIRECTED RT Aerosol Therapy [RC] ASDIRECTED Sodium Chloride 0.9% [Saline Flush] 10 ml FLUSH ASDIRECTED PRN 11/01/17 23:45 RT Aerosol Therapy [RC] ASDIRECTED 11/02/17 00:28 Azithromycin [Zithromax] 500 mg PO ONETIME ONE
[2017-11-01 23:50] VITALS: BP 128/78
[2017-11-02] MEDS ORDERED: Azithromycin 250 MG Tab PO ONE (00:28)
== END 2017-11-02 00:42 | disposition home or self-care (01) ==
LOC: DL.ED 21:20
DX: O99.511 Diseases of the respiratory system complicating pregnancy, first trimester (principal); J45.901 Unspecified asthma with (acute) exacerbation; Z87.891 Personal history of nicotine dependence; Z3A.01 Less than 8 weeks gestation of pregnancy
CPT/HCPCS: 96365; 96366; 96375; 99285; A9270; J2930; J3475

== ENCOUNTER 2017-11-10 11:10 | Emergency (ER) | payer MEDICAID ==
[2017-11-10 11:24] VITALS: BP 133/94
[2017-11-10] MEDS ORDERED: Cyclobenzaprine 10 MG Tab PO ONE (11:24)
[2017-11-10] MEDS ORDERED: Albuterol/Ipratropium 3.0-0.5 MG/3 ML Neb Soln NEB ONE (11:26)
--- NOTE | 2017-11-10 11:27 | EDM.PDOC ---
ED HPI GENERAL MEDICAL PROBLEM - General Chief Complaint: Back Pain or Injury Stated Complaint: IN BY AMBULANCE Time Seen by Provider: 11/10/17 11:18 Source of Information: Reports: Patient History Limitations: Reports: No Limitations - History of Present Illness INITIAL COMMENTS - FREE TEXT/NARRATIVE: Patient complains of left-sided flank pain. She denies fever chills. Notes increased voiding. Recently treated for bronchitis. She continues to have cough. She does not notice wheezing. She denies fever chills or night sweats. Flank pain is more noted with movement. Patient is 4 weeks . Recent improvement with prednisone and antibiotic. Onset: Gradual Duration: Day(s): Location: Reports: Back Quality: Reports: Ache, Sharp Severity: Moderate Worsens with: Reports: Movement Left Flank Pain Score (Numeric/FACES): 7 - Related Data Allergies Allergy/AdvReac Type Severity Reaction Status Date / Time No Known Allergies Allergy Verified 11/10/17 11:12 Home Meds: Home Meds Vit W-Ca,Fe,FA(<1 mg) [ Vitamins] 1 tab PO DAILY 04/28/17 [ History] Past Medical History - Past Health History Medical/Surgical History: Denies Medical/Surgical History HEENT History: Reports: None Cardiovascular History: Reports: None Respiratory History: Reports: Other (See Below) Other Respiratory History: RAD Gastrointestinal History: Reports: None Genitourinary History: Reports: None [employer] History: Reports: Other OB/BYN History: hx abnormal pap and colposcopy Musculoskeletal History: Reports: None Neurological History: Reports: None Psychiatric History: Reports: Anxiety, Panic Attack Endocrine/Metabolic History: Reports: Obesity/BMI 30+ Hematologic History: Reports: None Immunologic History: Reports: None Oncologic (Cancer) History: Reports: None Dermatologic History: Reports: None - Past Surgical History Female Surgical History: Reports: Section Social & Family History - Family History Family Medical History: Noncontributory - Tobacco Use Smoking Status *Q: Never Smoker Years of Tobacco use: 5 Packs/Tins Daily: 0.1 Used Tobacco, but Quit: Yes Month Tobacco Last Used: 9 Second Hand Smoke Exposure: Yes - Caffeine Use Caffeine Use: Reports: None - Alcohol Use Days Per Week of Alcohol Use: 1 Number of Drinks Per Day: 6 Total Drinks Per Week: 6 - Recreational Drug Use Recreational Drug Use: No Drug Use in Last 12 Months: Yes Recreational Drug Type: Reports: Marijuana/Hashish Recreational Drug Use Frequency: Socially - Sexual History Sexual History: Reports: Sexually Active - Living Situation & Occupation Living situation: Reports: with Family Occupation: Unemployed ED ROS GENERAL - Review of Systems Review Of Systems: See Below Constitutional: Reports: No Symptoms HEENT: Reports: No Symptoms Respiratory: Reports: Cough Cardiovascular: Reports: No Symptoms Endocrine: Reports: No Symptoms GI/Abdominal: Denies: Abdominal Pain, Constipation, Diarrhea : Reports: Flank Pain, Frequency Musculoskeletal: Reports: Back Pain Skin: Reports: No Symptoms Neurological: Reports: No Symptoms Psychiatric: Reports: No Symptoms ED EXAM,LOWER BACK PAIN/INJURY - Physical Exam Exam: See Below Exam Limited By: No Limitations General Appearance: Alert, No Apparent Distress Ears: Normal External Exam Nose: Normal Inspection Throat/Mouth: Normal Inspection, Normal Oropharynx Head: Atraumatic, Normocephalic Respiratory/Chest: No Respiratory Distress, Rhonchi. No: Crackles, Rales GI/Abdominal: Normal Bowel Sounds, Soft, Non-Tender Back Exam: CVA Tenderness (L) Extremities: Normal Inspection, Normal Range of Motion Neurological: Alert, Normal Mood/Affect, CN II-XII Intact Course - Vital Signs Last Recorded V/S: Last Vital Signs Temp 99.4 F 11/10/17 11:19 Pulse 106 H 11/10/17 11:35 Resp 18 11/10/17 11:19 BP 133/94 H 11/10/17 11:19 Pulse Ox 97 11/10/17 11:19 - Orders/Labs/Meds Orders: Active Orders 24 hr Category Date Time Status RT Aerosol Therapy [RC] ASDIRECTED Care 11/10/17 11:26 Active Labs: Laboratory Tests 11/10/17 11/10/17 Range/Units 11:01 11:31 WBC 11.7 H (5.0-10.0) 10^3/uL RBC 4.72 (4.2-5.4) 10^6/uL Hgb 10.6 L D (12.0-16.0) g/dL Hct 34.0 L (37.0-47.0) % MCV 72.0 L (80-100) fL MCH 22.5 L (27.0-34.0) pg MCHC 31.2 L (33.0-35.0) g/dL Plt Count 408 (150-450) 10^3/uL Neut % (Auto) 59.7 (42.2-75.2) % Lymph % (Auto) 29.5 (20.5-50.1) % [place] % (Auto) 8.9 H (2-8) % Eos % (Auto) 1.2 (1.0-3.0) % Baso % (Auto) 0.7 (0.0-1.0) % Urine Color Yellow (YELLOW) Urine Appearance Slightly cloudy (CLEAR) Urine pH 6.0 (5.0-9.0) Ur Specific [place] >= 1.030 (1.005-1.030) Urine Protein 30 H (NEGATIVE) Urine Glucose (UA) Negative (NEGATIVE) Urine Ketones Negative (NEGATIVE) Urine Occult Blood Negative (NEGATIVE) Urine Nitrite Negative (NEGATIVE) Urine Bilirubin Negative (NEGATIVE) Urine Urobilinogen 0.2 (0.2-1.0) mg/dL Ur Leukocyte Esterase Trace H (NEGATIVE) Urine RBC 0-5 /HPF Urine WBC 10-20 H (0-5/HPF) /HPF Ur Epithelial Cells Few /HPF Amorphous Sediment Few (0/HPF) /HPF Urine Bacteria Rare (0-FEW/HPF) /HPF Urine Mucus Many H /LPF Meds: Medications Discontinued Medications Generic Name Dose Route Start Last Admin Trade Name Freq PRN Reason Stop Dose Admin Albuterol/Ipratropium 3 ml 11/10/17 11:26 11/10/17 11:35 Duoneb 3.0-0.5 Mg/3 Ml NEB 11/10/17 11:27 3 ml ONETIME ONE Administration Cyclobenzaprine HCl 10 mg 11/10/17 11:24 11/10/17 11:38 Flexeril PO 11/10/17 11:25 10 mg ONETIME ONE Administration - Re-Assessments/Exams Free Text/Narrative Re-Assessment/Exam: 11/10/17 12:54 Renal ultrasound shows no evidence of hydronephrosis. Patient has a live single intrauterine of 9 weeks Departure - Departure Time of Disposition: 13:02 Disposition: Home, Self-Care 01 Condition: Good Clinical Impression: Cough, Back muscle spasm, Bronchitis Qualifiers: Weeks of gestation: unspecified Qualified Code(s): Z33.1 - state, incidental - Discharge Information Instructions: Muscle Cramps and Spasms, [id number], Cough, Adult, Easy-to- Read, First Trimester of , [id number], Back Pain, Adult, [id number] , Cough, Adult Forms: ED Department Discharge Additional Instructions: Take medications as directed. May utilize ice or heat to the back. Drink plenty of fluids and rest. Follow-up with regular provider on Sunday. Call or return sooner if any problems questions or concerns - My Orders Last 24 Hours: My Active Orders 11/10/17 11:26 RT Aerosol Therapy [RC] ASDIRECTED - Assessment/Plan Last 24 Hours: My Active Orders 11/10/17 11:26 RT Aerosol Therapy [RC] ASDIRECTED
--- NOTE | 2017-11-10 12:44 | US ---
Clinical history: 27-year-old 204 pound female with left flank pain. Interpretation: Enlarged uterus with a single live ( heart rate 172 bpm) intrauterine gestation. Saxon-rump length measurement 2.23 cm approximates a 9 week fetus. Normal reniform size, axis and configuration bilaterally without sign of cortical mass lesion (cystic or solid), scarring, nephrolithiasis or obstructive uropathy (pyelocaliectasis) either kidney. Right kidney measures 10.8 cm L x 5.6 cm W x 4.12 cm AP diameter. Left kidney measures 11.6 cm L x 5.1 cm WI 5.8 cm AP diameter. CONCLUSION: Normal kidneys and upper tracts. Single live 9 week intrauterine gestation.
== END 2017-11-10 13:10 | disposition home or self-care (01) ==
LOC: DL.ED 11:10
DX: O99.89 Other specified diseases and conditions complicating pregnancy, childbirth and the puerperium (principal); M62.830 Muscle spasm of back; O99.511 Diseases of the respiratory system complicating pregnancy, first trimester; J40 Bronchitis, not specified as acute or chronic; Z87.891 Personal history of nicotine dependence; Z3A.01 Less than 8 weeks gestation of pregnancy
CPT/HCPCS: 36415; 76775; 81001; 85025; 94640; 99284; A9270

== ENCOUNTER 2017-12-05 17:43 | Emergency (ER) | payer MEDICAID ==
[2017-12-05 18:09] VITALS: BP 131/90
[2017-12-05] MEDS: Albuterol/Ipratropium 3.0-0.5 MG/3 ML Neb Soln NEB ONE (18:29)
--- NOTE | 2017-12-05 18:44 | EDM.PDOC ---
<Mis Carrizales - Last Filed: 12/06/17 03:12> ED HPI GENERAL MEDICAL PROBLEM - General Chief Complaint: Respiratory Problem Stated Complaint: [id number] ASTHMA Time Seen by Provider: 12/05/17 18:30 - Related Data Allergies Allergy/AdvReac Type Severity Reaction Status Date / Time No Known Allergies Allergy Verified 12/05/17 18:04 Home Meds: Home Meds Vit W-Ca,Fe,FA(<1 mg) [ Vitamins] 1 tab PO DAILY 04/28/17 [ History] Course - Vital Signs Last Recorded V/S: Last Vital Signs Temp 36.9 C 12/05/17 18:07 Pulse 130 H 12/05/17 18:30 Resp 20 12/05/17 18:07 BP 131/90 12/05/17 18:07 Pulse Ox 98 12/05/17 18:07 - Orders/Labs/Meds Orders: Active Orders 24 hr Category Date Time Status RT Aerosol Therapy [RC] ASDIRECTED Care 12/05/17 18:21 Active RT Aerosol Therapy [RC] ASDIRECTED Care 12/05/17 19:23 Active Labs: Laboratory Tests 12/05/17 12/05/17 Range/Units 18:30 18:30 WBC 13.4 H (5.0-10.0) 10^3/uL RBC 4.78 (4.2-5.4) 10^6/uL Hgb 10.7 L (12.0-16.0) g/dL Hct 34.3 L (37.0-47.0) % MCV 71.8 L (80-100) fL MCH 22.4 L (27.0-34.0) pg MCHC 31.2 L (33.0-35.0) g/dL Plt Count 343 (150-450) 10^3/uL Neut % (Auto) 73.4 (42.2-75.2) % Lymph % (Auto) 13.9 L (20.5-50.1) % [place] % (Auto) 4.9 (2-8) % Eos % (Auto) 7.7 H (1.0-3.0) % Baso % (Auto) 0.1 (0.0-1.0) % Sodium 133 L (135-145) mmol/L Potassium 3.6 (3.6-5.0) mmol/L Chloride 104 (101-111) mmol/L Carbon Dioxide 19.0 L (21.0-31.0) mmol/L Anion Gap 13.6 BUN 6 L (7-18) mg/dL Creatinine 0.6 (0.6-1.3) mg/dL Est Cr Clr Drug Dosing 120.54 mL/min Estimated GFR (MDRD) > 60 BUN/Creatinine Ratio 10.00 Glucose 114 H (74-105) mg/dL Calcium 8.6 (8.4-10.2) mg/dl Total Bilirubin 0.8 (0.2-1.0) mg/dL AST 24 (10-42) IU/L ALT 9 L (10-60) IU/L Alkaline Phosphatase 119 (42-121) IU/L Total Protein 7.3 (6.7-8.2) g/dl Albumin 3.3 (3.2-5.5) g/dl Globulin 4.0 Albumin/Globulin Ratio 0.83 Meds: Medications Discontinued Medications Generic Name Dose Route Start Last Admin Trade Name Zohreh PRN Reason Stop Dose Admin Albuterol 2.5 mg 12/05/17 19:23 12/05/17 19:26 Proventil Neb Soln NEB 12/05/17 19:24 2.5 mg ONETIME ONE Administration Albuterol/Ipratropium 3 ml 12/05/17 18:21 12/05/17 18:29 Duoneb 3.0-0.5 Mg/3 Ml NEB 12/05/17 18:22 3 ml ONETIME ONE Administration Ceftriaxone Sodium 1 gm/ 0 gm 12/05/17 18:36 12/05/17 18:47 Lidocaine HCl 2.1 ml IM 12/05/17 18:37 2.1 inj ONETIME ONE Administration Methylprednisolone Sodium Succinate 125 mg 12/05/17 18:35 12/05/17 18:46 Solu-Medrol IM 12/05/17 18:36 125 mg ONETIME ONE Administration - Re-Assessments/Exams Free Text/Narrative Re-Assessment/Exam: 12/06/17 03:12 Lung sounds improved following 2nd neb. Departure - Departure Time of Disposition: 19:57 Disposition: Home, Self-Care 01 Condition: Good Clinical Impression: Acute asthma - Discharge Information Instructions: Asthma, Adult Referrals: Jonathan Osorio MD [Primary Care Provider] - Forms: ED Department Discharge Additional Instructions: continue nebulizsers every 4 hours as needed humidification prednisone 20mg in am then 10 mg daily follow up in clinic in am - My Orders Last 24 Hours: My Active Orders 12/05/17 18:21 RT Aerosol Therapy [RC] ASDIRECTED - Assessment/Plan Last 24 Hours: My Active Orders 12/05/17 18:21 RT Aerosol Therapy [RC] ASDIRECTED <Isaiah Jacobo - Last Filed: 12/06/17 07:11> ED HPI GENERAL MEDICAL PROBLEM - General Source of Information: Reports: Patient History Limitations: Reports: No Limitations - History of Present Illness INITIAL COMMENTS - FREE TEXT/NARRATIVE: This 27 yo female patient reports to the ED with a 2 day history of increased shortness of breath. The patient reports that she is at this time, but has not had any abdominal complaints. The patient reports she has been doing her breathing treatments with some brief symptom reduction. Onset Date: 12/04/17 Duration: Constant, Getting Worse Location: Reports: Chest Quality: Reports: Pressure Severity: Moderate Improves with: Reports: Medication, Rest Worsens with: Reports: Movement Context: Reports: Other (Asthma) Associated Symptoms: Reports: Cough, Shortness of Breath Past Medical History - Past Health History Medical/Surgical History: Denies Medical/Surgical History HEENT History: Reports: None Cardiovascular History: Reports: None Respiratory History: Reports: Asthma, Other (See Below) Other Respiratory History: RAD Gastrointestinal History: Reports: None Genitourinary History: Reports: None [employer]ER History: Reports: Other OB/BYN History: hx abnormal pap and colposcopy Musculoskeletal History: Reports: None Neurological History: Reports: None Psychiatric History: Reports: Anxiety, Panic Attack Endocrine/Metabolic History: Reports: Obesity/BMI 30+ Hematologic History: Reports: None Immunologic History: Reports: None Oncologic (Cancer) History: Reports: None Dermatologic History: Reports: None - Past Surgical History Female Surgical History: Reports: Section Social & Family History - Family History Family Medical History: Noncontributory - Tobacco Use Smoking Status *Q: Never Smoker Years of Tobacco use: 5 Packs/Tins Daily: 0.1 Used Tobacco, but Quit: Yes Month/Year Tobacco Last Used: 9 Second Hand Smoke Exposure: No - Caffeine Use Caffeine Use: Reports: None - Alcohol Use Days Per Week of Alcohol Use: 1 Number of Drinks Per Day: 6 Total Drinks Per Week: 6 - Recreational Drug Use Recreational Drug Use: No Drug Use in Last 12 Months: Yes Recreational Drug Type: Reports: Marijuana/Hashish Recreational Drug Use Frequency: Socially - Sexual History Sexual History: Reports: Sexually Active - Living Situation & Occupation Living situation: Reports: with Family Occupation: Unemployed ED ROS GENERAL - Review of Systems Review Of Systems: ROS reveals no pertinent complaints other than HPI. ED EXAM, GENERAL - Physical Exam Exam: See Below Exam Limited By: No Limitations General Appearance: Alert, WD/WN, Moderate Distress Eye Exam: Bilateral Eye: EOMI, Normal Inspection, PERRL Ears: Normal External Exam, Normal Canal, Hearing Grossly Normal, Normal TMs Nose: Normal Inspection, Normal Mucosa, No Blood Throat/Mouth: Normal Inspection, Normal Lips, Normal Teeth, Normal Gums, Normal Oropharynx, Normal Voice, No Airway Compromise Head: Atraumatic, Normocephalic Neck: Normal Inspection, Supple, Non-Tender, Full Range of Motion Respiratory/Chest: No Accessory Muscle Use, Chest Non-Tender, Rhonchi, Wheezing Cardiovascular: Normal Peripheral Pulses, Regular Rate, Rhythm, No Edema, No Gallop, No JVD, No Murmur, No Rub GI/Abdominal: Normal Bowel Sounds, Soft, Non-Tender, No Organomegaly, No Distention, No Abnormal Bruit, No Mass, Other (obese) (Female) Exam: Deferred Rectal (Female) Exam: Deferred Back Exam: Normal Inspection, Full Range of Motion, NT Extremities: Normal Inspection, Normal Range of Motion, Non-Tender, Normal Capillary Refill, No Pedal Edema Neurological: Alert, Oriented, CN II-XII Intact, Normal Cognition, Normal Gait, Normal Reflexes, No Motor/Sensory Deficits Psychiatric: Normal Affect, Normal Mood Skin Exam: Dry, Intact, Normal Color, No Rash, Increased Warmth Lymphatic: No Adenopathy
[2017-12-05] MEDS: methylPREDNISolone Sodium Succinate 125 MG/2 ML SDV IM ONE (18:46)
[2017-12-05] MEDS: cefTRIAXone 1 GM, Lidocaine 1% 2.1 ML IM ONE ×2 (18:47)
[2017-12-05 18:55] LABS: CHLORIDE,CL 104 mmol/L (101-111); SODIUM,NA 133 mmol/L (135-145)
[2017-12-05] MEDS: Albuterol 0.083% 2.5 MG/3 ML Neb Soln NEB ONE (19:26)
== END 2017-12-05 20:08 | disposition home or self-care (01) ==
LOC: DL.ED 17:43
DX: O99.519 Diseases of the respiratory system complicating pregnancy, unspecified trimester (principal); J45.901 Unspecified asthma with (acute) exacerbation
CPT/HCPCS: 36415; 80053; 85025; 94640; 96372; 99285; J0696; J2930; J7620

== ENCOUNTER 2017-12-12 03:05 | Inpatient (IN) | payer MEDICAID ==
[2017-12-12] MEDS ORDERED: methylPREDNISolone Sodium Succinate 125 MG/2 ML SDV IVPUSH ONE (03:16)
[2017-12-12] MEDS ORDERED: Albuterol 0.083% 2.5 MG/3 ML Neb Soln NEB ONE (03:16)
[2017-12-12 03:41] LABS: CHLORIDE,CL 102 mmol/L (101-111); SODIUM,NA 133 mmol/L (135-145)
--- NOTE | 2017-12-12 03:51 | EDM.PDOC ---
ED HPI GENERAL MEDICAL PROBLEM - General Chief Complaint: Respiratory Problem Stated Complaint: IN BY AMBULANCE Time Seen by Provider: 12/12/17 03:10 Source of Information: Reports: Patient History Limitations: Reports: No Limitations - History of Present Illness INITIAL COMMENTS - FREE TEXT/NARRATIVE: ED via [facility] with difficulty breathing. Hx asthma and reports using nebs at least every hour today, Has been seen in ED and in clinic in past week. Not improving. Reports poor control with previous but not this bad. Estimates pg at 14 weeks. LMP first week of August. Chills today, no fever, cough productive at times white phlegm. Upper Back Pain Score (Numeric/FACES): 4 - Related Data Allergies Allergy/AdvReac Type Severity Reaction Status Date / Time No Known Allergies Allergy Verified 12/12/17 03:09 Home Meds: Home Meds Vit W-Ca,Fe,FA(<1 mg) [ Vitamins] 1 tab PO DAILY 04/28/17 [ History] Albuterol [Proventil Neb Soln] 1.25 mg NEB ASDIRECTED PRN 12/12/17 [History] Albuterol/Ipratropium [DuoNeb 3.0-0.5 MG/3 ML] 3 ml .XX ASDIRECTED PRN 12/12/17 [History] Amoxicillin/Clavulanate K [Augmentin 875-125 MG] 1 tab PO BID 12/12/17 [History] Budesonide [Pulmicort] 0.5 mg IH ASDIRECTED 12/12/17 [History] Cetirizine [ZyrTEC] 10 mg PO DAILY 12/12/17 [History] Folic Acid 1 mg PO DAILY 12/12/17 [History] Montelukast Sodium [Singulair] 10 mg PO DAILY 12/12/17 [History] Past Medical History - Past Health History Medical/Surgical History: Denies Medical/Surgical History HEENT History: Reports: None Cardiovascular History: Reports: None Respiratory History: Reports: Asthma, Other (See Below) Other Respiratory History: RAD Gastrointestinal History: Reports: None Genitourinary History: Reports: None 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[employer] MANAGEMENT History: Reports: Other OB/BYN History: hx abnormal pap and colposcopy Musculoskeletal History: Reports: None Neurological History: Reports: None Psychiatric History: Reports: Anxiety, Panic Attack Endocrine/Metabolic History: Reports: Obesity/BMI 30+ Hematologic History: Reports: None Immunologic History: Reports: None Oncologic (Cancer) History: Reports: None Dermatologic History: Reports: None - Past Surgical History Female Surgical History: Reports: Section Social & Family History - Family History Family Medical History: Noncontributory - Tobacco Use Smoking Status *Q: Never Smoker Years of Tobacco use: 5 Packs/Tins Daily: 0.1 Used Tobacco, but Quit: Yes Month/Year Tobacco Last Used: 9 Second Hand Smoke Exposure: No - Caffeine Use Caffeine Use: Reports: None - Alcohol Use Days Per Week of Alcohol Use: 1 Number of Drinks Per Day: 6 Total Drinks Per Week: 6 - Recreational Drug Use Recreational Drug Use: No Drug Use in Last 12 Months: Yes Recreational Drug Type: Reports: Marijuana/Hashish Recreational Drug Use Frequency: Socially - Sexual History Sexual History: Reports: Sexually Active - Living Situation & Occupation Living situation: Reports: with Family Occupation: Unemployed ED ROS GENERAL - Review of Systems Review Of Systems: See Below Constitutional: Reports: Chills HEENT: Reports: No Symptoms Respiratory: Reports: Shortness of Breath, Wheezing, Cough Cardiovascular: Reports: No Symptoms GI/Abdominal: Reports: No Symptoms : Reports: Other (14 weeks ) Musculoskeletal: Reports: No Symptoms Skin: Reports: No Symptoms Neurological: Reports: No Symptoms ED EXAM, GENERAL - Physical Exam Exam: See Below Exam Limited By: No Limitations General Appearance: Alert, Moderate Distress Eye Exam: Bilateral Eye: EOMI Ears: Normal External Exam, Normal TMs Nose: Normal Inspection Throat/Mouth: Normal Inspection, Normal Lips Head: Atraumatic, Normocephalic Neck: Normal Inspection, Full Range of Motion Respiratory/Chest: Respiratory Distress, Decreased Breath Sounds, Wheezing ( bilateral throughout). No: Normal Breath Sounds Cardiovascular: Normal Peripheral Pulses, Regular Rate, Rhythm, Tachycardia GI/Abdominal: Normal Bowel Sounds Extremities: Normal Inspection Neurological: Alert, Oriented, Normal Cognition Psychiatric: Anxious (mild) Course - Vital Signs Last Recorded V/S: Last Vital Signs Temp 98.7 F 12/12/17 03:10 Pulse 117 H 12/12/17 04:05 Resp 28 H 12/12/17 03:17 BP 120/80 12/12/17 04:05 Pulse Ox 95 12/12/17 04:05 - Orders/Labs/Meds Orders: Active Orders 24 hr Category Date Time Status RT Aerosol Therapy [RC] ASDIRECTED Care 12/12/17 03:17 Active Labs: Laboratory Tests 12/12/1718 18 Range/Units 03:15 03:15 03:15 WBC 15.9 H (5.0-10.0) 10^3/uL RBC 5.05 (4.2-5.4) 10^6/uL Hgb 11.3 L (12.0-16.0) g/dL Hct 35.3 L (37.0-47.0) % MCV 69.9 L (80-100) fL MCH 22.4 L (27.0-34.0) pg MCHC 32.0 L (33.0-35.0) g/dL Plt Count 412 (150-450) 10^3/uL Neut % (Auto) 70.5 (42.2-75.2) % Lymph % (Auto) 15.8 L (20.5-50.1) % [place] % (Auto) 4.8 (2-8) % Eos % (Auto) 8.6 H (1.0-3.0) % Baso % (Auto) 0.3 (0.0-1.0) % Sodium 133 L (135-145) mmol/L Potassium 3.7 (3.6-5.0) mmol/L Chloride 102 (101-111) mmol/L Carbon Dioxide 19.0 L (21.0-31.0) mmol/L Anion Gap 15.7 BUN 7 (7-18) mg/dL Creatinine 0.5 L (0.6-1.3) mg/dL Est Cr Clr Drug Dosing 144.65 mL/min Estimated GFR (MDRD) > 60 BUN/Creatinine Ratio 14.00 Glucose 122 H (74-105) mg/dL Lactic Acid 1.2 (0.5-2.2) mmol/L Calcium 8.7 (8.4-10.2) mg/dl Magnesium 1.8 (1.8-2.5) mg/dL Total Bilirubin 0.8 (0.2-1.0) mg/dL AST 21 (10-42) IU/L ALT 18 (10-60) IU/L Alkaline Phosphatase 57 (42-121) IU/L C-Reactive Protein (0.0-1.3) mg/dL Total Protein 7.4 (6.7-8.2) g/dl Albumin 3.2 (3.2-5.5) g/dl Globulin 4.2 Albumin/Globulin Ratio 0.76 12/12/17 Range/Units 03:15 WBC (5.0-10.0) 10^3/uL RBC (4.2-5.4) 10^6/uL Hgb (12.0-16.0) g/dL Hct (37.0-47.0) % MCV (80-100) fL MCH (27.0-34.0) pg MCHC (33.0-35.0) g/dL Plt Count (150-450) 10^3/uL Neut % (Auto) (42.2-75.2) % Lymph % (Auto) (20.5-50.1) % [place] % (Auto) (2-8) % Eos % (Auto) (1.0-3.0) % Baso % (Auto) (0.0-1.0) % Sodium (135-145) mmol/L Potassium (3.6-5.0) mmol/L Chloride (101-111) mmol/L Carbon Dioxide (21.0-31.0) mmol/L Anion Gap BUN (7-18) mg/dL Creatinine (0.6-1.3) mg/dL Est Cr Clr Drug Dosing mL/min Estimated GFR (MDRD) BUN/Creatinine Ratio Glucose (74-105) mg/dL Lactic Acid (0.5-2.2) mmol/L Calcium (8.4-10.2) mg/dl Magnesium (1.8-2.5) mg/dL Total Bilirubin (0.2-1.0) mg/dL AST (10-42) IU/L ALT (10-60) IU/L Alkaline Phosphatase (42-121) IU/L C-Reactive Protein 6.5 H (0.0-1.3) mg/dL Total Protein (6.7-8.2) g/dl Albumin (3.2-5.5) g/dl Globulin Albumin/Globulin Ratio Meds: Medications Discontinued Medications Generic Name Dose Route Start Last Admin Trade Name Freq PRN Reason Stop Dose Admin Albuterol 2.5 mg 12/12/17 03:16 12/12/17 03:23 Proventil Neb Soln NEB 12/12/17 03:17 2.5 mg ONETIME ONE Administration Methylprednisolone Sodium Succinate 125 mg 12/12/17 03:16 12/12/17 03:23 Solu-Medrol IVPUSH 12/12/17 03:17 125 mg ONETIME ONE Administration - Re-Assessments/Exams Free Text/Narrative Re-Assessment/Exam: Duo neb via EMS, Albubuterol given, notes some improvement. Saturation 95% on [address] Lin accepting of patient for further management of uncontrolled asthma and early 2nd trimester . Departure - Departure Time of Disposition: 04:02 Disposition: Admitted As Inpatient 65 Condition: Fair Clinical Impression: Second trimester Exacerbation of asthma Qualifiers: Asthma severity: moderate Asthma persistence: persistent Qualified Code(s): J45.41 - Moderate persistent asthma with (acute) exacerbation - Discharge Information Forms: ED Department Discharge - My Orders Last 24 Hours: My Active Orders 12/12/17 03:17 RT Aerosol Therapy [RC] ASDIRECTED - Assessment/Plan Last 24 Hours: My Active Orders 12/12/17 03:17 RT Aerosol Therapy [RC] ASDIRECTED
[2017-12-12] MEDS ORDERED: Albuterol 0.083% 2.5 MG/3 ML Neb Soln NEB PRN (04:17)
[2017-12-12] MEDS: Albuterol/Ipratropium 3.0-0.5 MG/3 ML Neb Soln NEB SCH ×10 (04:25→22:25)
[2017-12-12] MEDS ORDERED: FLU VAC QS 17-18(4YR UP)CEL/PF 60 MCG/0.5 ML Syringe IM PRN (06:00)
[2017-12-12] MEDS ORDERED: Montelukast 10 MG Tab PO ONE (08:40)
[2017-12-12] MEDS: predniSONE 20 MG Tab PO SCH (08:54)
[2017-12-12] MEDS: Acetaminophen 500 MG Tab PO PRN ×2 (08:54→18:28)
[2017-12-12] MEDS: Montelukast 10 MG Tab PO SCH (08:54)
--- NOTE | 2017-12-12 11:09 | CR ---
CLINICAL HISTORY: 27-year-old gravid (14 weeks) female with history of "asthma like" exacerbation ass ociated with previous pregnancies and once again respiratory difficulties. Rule out cardiopulmonary a bnormality. INTERPRETATION: Chronic shaggy prominence of the bronchovascular markings unchanged since previous 06 May 2017 exam. Normal cardiac silhouette without cephalization of vascular flow, signs of alveolar edema or dependen t pleural fluid accumulation. No new lung mass, hilar lymphadenopathy or focal lobar pneumonia. No atelectasis/collapse. No air trapping. No pneumothorax. Jessica thorax unremarkable. CONCLUSION: No acute new cardiopulmonary abnormality.
[2017-12-12] MEDS ORDERED: Magnesium Sulfate/Water 2 GM in Premix Bag 1 BAG IV ONE (12:55)
--- NOTE | 2017-12-12 13:12 | HP ---
CHIEF COMPLAINT: "Having trouble breathing." HISTORY OF PRESENT ILLNESS: The patient is a 27-year-old, G4, P3-0-0-3, current intrauterine around 14 weeks' gestation, who presents with increasing shortness of breath. For the past week, the patient has had a cough, sore throat, "wheezing", and dyspnea on exertion. She has had subjective fevers, feeling warm and diaphoretic, but has not actually taken her temperature. Her cough has been productive of a white sputum with green streaks. She states that she has visited the clinic in [place] multiple times and has been given antibiotics as well as refills on her asthma medications with minimal relief. She also was seen in the Emergency Department within the week in [place] for these symptoms and was given an antibiotic. She eventually was using her nebulizer every hour, and they were no longer helping. She states that the symptoms were so bad that she was coughing to the point where she was "blacking out" and was unable to sleep. Her appetite has been decreased, but her fluid intake has been good. She reports that both of her daughters have been sick, and last week, her youngest was transferred to [place] for treatment of bronchiolitis. She states that when she is , she has bad asthma-related symptoms requiring three asthma medications to control. She has had exacerbations during past pregnancies, but none have been as severe as this one. REVIEW OF SYSTEMS: She denies nasal congestion, rhinorrhea, rashes, or bowel or bladder problems. She states that she has had headaches every day for the past week but denies visual changes. She states that she has not felt movement yet and denies leakage of fluid or vaginal bleeding. Records were reviewed as below and provided by the patient's history. OBSTETRICAL HISTORY: 1. Current is the patient's fourth . She states that she had an ultrasound performed two days ago that dated her at 14 weeks. She also had her antepartum labs done at this visit; and she has appointment with Beatris Heaton NP, in [place] on December 25 whom she states will be following this until closer to delivery. Other than the current symptoms, she denies any other complications during this . 2. On April 29, 2017, 37-1/2 weeks' gestation, delivered via low transverse section, yielding a female weighing 8 pounds 12 ounces. The patient states her blood pressures were high during this . 3. On January 27, 2011, 39 weeks, delivered via repeat low transverse section, female weighing 3572 g. 4. On April 14, 2008, delivered via primary low transverse section, male weighing 4026 g, complicated by gestational hypertension and failure to progress. 5. She did note that she has had issues with asthma exacerbations with each of her pregnancies but has not had symptoms this severe or this early in . She has not seen Pulmonology or Allergy for this in the past. ALLERGIES: No known allergies. MEDICATIONS: 1. Albuterol inhaler. 2. DuoNeb. 3. Inhaled corticosteroid. 4. vitamins. SOCIAL HISTORY: The patient lives in the [facility] with her three children. No pets in the home and she is not working currently. Father of the baby is Michael Mendoza, and he is currently incarcerated. She is not currently smoking, stating that she quit 4 months ago. She is not currently using alcohol, but states that she was before she found out that she was . She denies any current drug use including methamphetamine, marijuana, cocaine, and heroin. She states that she has used marijuana in the past but denies use during her . PAST MEDICAL/PAST SURGICAL HISTORY: 1. Asthma versus reactive airway disease. 2. History of chlamydia and Trichomonas in the past. 3. History of abnormal Pap smears. 4. Three previous C-sections. FAMILY HISTORY: Asthma and heart disease in her mother. Diabetes in her father. Negative family history of defects, anesthesia problems, bleeding problems, liver or kidney problems. OBJECTIVE: Vital Signs: Blood pressure 132/74, heart rate 118, temperature 98.1, respiratory rate 16, and oxygen saturation 96% on 2 L O2 via nasal cannula. Appearance: The patient appears short of breath and tachypneic, but is able to answer questions appropriately. HEENT: Atraumatic. Pupils are equal, round, and reactive to light and accommodation. Anicteric sclerae. No obvious otorhinorrhea. Oropharynx mildly erythematous without edema or exudate. Mucous membranes moist. Neck: No stiffness. No obvious masses or lesions. Lungs: Tachypneic with increased work of breathing. Rhonchi and expiratory wheezes auscultated diffusely and bilaterally. Intermittent harsh cough. Poor air movement noted. Heart: Regular rate and rhythm. S1 and S2. Abdomen: Soft, gravid, and nondistended. Bowel sounds positive. No other organomegaly. No rebound, rigidity, or guarding. Extremities: No erythema, edema, or tenderness in any extremity. Skin: Warm, dry, and well perfused. No cyanosis. Capillary refill less than 2 seconds. Normal skin turgor. LABORATORY DATA: CBC: White blood cell count 15.9, 70.5% neutrophils, 15.8% lymphocytes, 8.6% eosinophils, hemoglobin 11.3, and platelet count 412. Metabolic panel: Sodium 133, carbon dioxide 19, glucose 122. C-reactive protein 6.5. ASSESSMENT: 1. Exacerbation of asthma versus reactive airway disease. 2. Second-trimester . 3. Maternal anemia. PLAN: Please see orders for further details 1. Admit the patient to Med/Surg floor. 2. Albuterol inhaler 2.5 mg every hour as needed for dyspnea. 3. Albuterol-ipratropium DuoNeb 3 mL every 2 hours scheduled for dyspnea. 4. Budesonide, Pulmicort inhaled corticosteroid 0.5 mg nebulizer b.i.d. 5. Montelukast, Singulair 10 mg p.o. daily. 6. Prednisone 60 mg p.o. daily. 7. As the patient has had minimal improvement on current therapies, we will perform chest x-ray and reassess. We will consider administration of magnesium if the patient does not have any improvement by this afternoon. 8. Vitals q.4 hours. 9. Oxygen supplementation as needed to maintain oxygen saturation above 92%. The history, physical, assessment and plan are per Dr. Lin; and this note is being scribed for Dr. Lin. [facility] /[id number] Agree with student assessment and plan. Patient was examined by me, and the assessment and plan are per my recommendations. Any changes above were made to reflect my observations and recommendations. MD ANGELA Baptiste
--- NOTE | 2017-12-12 13:27 | PCM.SN ---
- Free Text/Narrative Note: 12/12/17 Patient was examined at the end of receiving a Duo-Neb around 1200. Lungs are still very tight with significantly decreased air movement. Patient still has increased work of breathing and is still on 2 liters of oxygen via NC. Will give 2 grams IV magnesium once to help open her airways. Smita Lin MD
[2017-12-12] MEDS: Budesonide 0.5 MG/2 ML Neb Susp NEB SCH (18:00)
[2017-12-13] MEDS: Albuterol/Ipratropium 3.0-0.5 MG/3 ML Neb Soln NEB SCH ×12 (00:23→22:14)
[2017-12-13] MEDS: Acetaminophen 500 MG Tab PO PRN ×2 (08:23→17:58)
[2017-12-13] MEDS ORDERED: guaiFENesin 100 MG/5 ML Soln 5 ML UD Cup PO PRN (08:24)
--- NOTE | 2017-12-13 08:24 | PCM.PN ---
- General Info Date of Service: 12/13/17 Subjective Update: 27-year-old at 14 weeks gestation hospital day #1 for acute asthma exacerbation. When yesterday morning, patient underwent chest x-ray which was essentially unchanged from her last check x-ray in April 2017. There were no signs of pneumonia. At noon yesterday, it was noted that patient's respiratory status had not improved despite aggressive use of nebulizers. Therefore, the decision was made to proceed with 2 g IV magnesium one time. This didn't seem to offer patient significant benefit. We also started steroids 60 mg daily and Pulmicort 0.5 g twice daily by nebulizer. Patient has gradually improved. She is able to stay off oxygen at rest but has needed it at times while sleeping and after activity. Patient's oxygen saturations have maintained 95% or greater however patient will often feel short of breath which resolves with oxygen use. No fevers or chills. No other new symptoms. Functional Status: Reports: Tolerating Diet, Ambulating, Urinating - Review of Systems General: Reports: Fatigue HEENT: Reports: No Symptoms Pulmonary: Reports: Shortness of Breath, Wheezing Cardiovascular: Reports: No Symptoms Gastrointestinal: Reports: No Symptoms Genitourinary: Reports: No Symptoms Musculoskeletal: Reports: No Symptoms Skin: Reports: No Symptoms - Patient Data Vitals - Most Recent: Last Vital Signs Temp 36.9 C 12/12/17 23:00 Pulse 122 H 12/13/17 04:00 Resp 22 H 12/12/17 23:00 BP 125/78 12/12/17 23:00 Pulse Ox 94 L 12/13/17 06:00 Weight - Most Recent: 99.427 kg I&O - Last 24 Hours: Intake & Output 12/12/17 12/13/17 12/13/17 22:59 06:59 14:59 Intake Total 425 450 Balance 425 450 Med Orders - Current: Current Medications Acetaminophen (Tylenol Extra Strength) 1,000 mg PO Q6H PRN PRN Reason: Pain Last Admin: 12/13/17 08:23 Dose: 1,000 mg Albuterol (Proventil Neb Soln) 2.5 mg NEB Q1H PRN PRN Reason: dyspnea Albuterol/Ipratropium (Duoneb 3.0-0.5 Mg/3 Ml) 3 ml NEB Q2H ELIN Last Admin: 12/13/17 06:39 Dose: 3 ml Budesonide (Pulmicort) 0.5 mg NEB BIDRT [facility] Last Admin: 12/12/17 18:00 Dose: 0.5 mg Guaifenesin (Robitussin) 100 mg PO Q6H PRN PRN Reason: Cough Montelukast Sodium (Singulair) 10 mg PO DAILY [facility] Last Admin: 12/12/17 08:54 Dose: 10 mg Prednisone (Prednisone) 60 mg PO DAILY [facility] Last Admin: 12/12/17 08:54 Dose: 60 mg Discontinued Medications Albuterol (Proventil Neb Soln) 2.5 mg NEB ONETIME ONE Stop: 12/12/17 03:17 Last Admin: 12/12/17 03:23 Dose: 2.5 mg Magnesium Sulfate 2 gm/ Premix 50 mls @ 25 mls/hr IV ONETIME ONE Stop: 12/12/17 14:54 Last Admin: 12/12/17 13:19 Dose: 25 mls/hr Influenza Virus Vaccine (Pharmacy To Dose - Influenza Vaccine) 1 each IM ONETIME ONE Stop: 12/12/17 05:11 Influenza Virus Vaccine (Flucelvax Quad [id number]) 60 mcg IM ATDISCHARGE PRN PRN Reason: Other Methylprednisolone Sodium Succinate (Solu-Medrol) 125 mg IVPUSH ONETIME ONE Stop: 12/12/17 03:17 Last Admin: 12/12/17 03:23 Dose: 125 mg Montelukast Sodium (Singulair) 10 mg PO ONETIME ONE Stop: 12/12/17 08:41 Last Admin: 12/12/17 09:55 Dose: Not Given - Exam General: Alert, Oriented HEENT: Pupils Equal, Pupils Reactive Lungs: Decreased Breath Sounds (Improved from yesterday), Wheezing (Inspiratory and expiratory) Cardiovascular: Regular Rate, Regular Rhythm, No Murmurs Extremities: No Pedal Edema Skin: Warm, Dry, Intact - Problem List & Annotations (1) Exacerbation of asthma SNOMED Code(s): 403179911 Code(s): J45.901 - UNSPECIFIED ASTHMA WITH (ACUTE) EXACERBATION Status: Acute Current Visit: Yes Qualifiers: Asthma severity: moderate Asthma persistence: persistent Qualified Code(s ): J45.41 - Moderate persistent asthma with (acute) exacerbation (2) Second trimester SNOMED Code(s): 95311936 Code(s): Z34.92 - ENCNTR FOR SUPRVSN OF NORMAL PREG, UNSP, SECOND TRIMESTER Status: Acute Current Visit: Yes - Problem List Review Problem List Initiated/Reviewed/Updated: Yes - My Orders Last 24 Hours: My Active Orders 12/12/17 08:21 Acetaminophen [Tylenol Extra Strength] 1,000 mg PO Q6H PRN 12/12/17 08:29 Up ad Stacy [RC] ASDIRECTED Resuscitation Status Routine 12/12/17 08:32 Vital Signs [RC] 03,07,11,15,19,23 12/12/17 08:33 Pulse Oximetry [RC] PRN 12/12/17 08:41 RT Aerosol Therapy [RC] Q2H 12/12/17 09:00 Montelukast [Singulair] 10 mg PO DAILY predniSONE 60 mg PO DAILY 12/12/17 18:00 Budesonide [Pulmicort] 0.5 mg NEB BIDRT 12/13/17 08:24 guaiFENesin [Robitussin] 100 mg PO Q6H PRN - Assessment Assessment:: 27-year-old at 40 weeks gestation, hospital day #1 for acute asthma exacerbation --Improving - Plan Plan:: 1. Continue prednisone and Pulmicort at current dosage 2. Attempt to decrease DuoNeb nebulizers to every 3 hours scheduled. 3. Continue to wean oxygen as tolerated. 4. Continue albuterol nebulizers hourly as needed 5. We'll attempt to call pulmonology today for discharge recommendations and follow-up appointment. Smita Lin MD ADDENDUM: I spoke to Dr. Woody at pulmonology. He recommended continuing the Pulmicort and steroids. He also recommended starting Brovana 15 g twice daily and Spiriva Respimant 1.25 g daily. I spoke to pharmacy, and Brovana is not available but can be ordered. We will plan to start this tomorrow. Also, only regular inhaled Spiriva is available at a dose of 18 g per day. As patient is receiving a significant amount of ipratropium, we will hold off at this time. If patient does not improve, this can be started. Patient will see Dr. Woody upon discharge. Smita Lin MD
[2017-12-13] MEDS: Budesonide 0.5 MG/2 ML Neb Susp NEB SCH ×2 (08:59→18:23)
[2017-12-13] MEDS: predniSONE 20 MG Tab PO SCH (09:06)
[2017-12-13] MEDS: Montelukast 10 MG Tab PO SCH (09:06)
[2017-12-13] MEDS: guaiFENesin 100 MG/5 ML Soln 5 ML UD Cup PO PRN ×2 (14:38→20:59)
[2017-12-13] MEDS: Sodium Chloride 0.9% 10 ML Syringe FLUSH PRN (20:59)
[2017-12-14] MEDS: Albuterol/Ipratropium 3.0-0.5 MG/3 ML Neb Soln NEB SCH ×12 (01:08→22:40)
[2017-12-14] MEDS: guaiFENesin 100 MG/5 ML Soln 5 ML UD Cup PO PRN ×3 (01:15→22:54)
[2017-12-14] MEDS: Acetaminophen 500 MG Tab PO PRN (04:15)
[2017-12-14] MEDS: predniSONE 20 MG Tab PO SCH (09:41)
[2017-12-14] MEDS: Montelukast 10 MG Tab PO SCH (09:51)
[2017-12-14] MEDS: Tiotropium Inhaler 18 MCG Inhalation Powder Cap Kit of 5 INH SCH (10:56)
[2017-12-14] MEDS: methylPREDNISolone Sodium Succinate 125 MG/2 ML SDV IVPUSH SCH (11:05)
[2017-12-14] MEDS: [UNRECOGNIZED DRUG - REMARK] INH SCH ×2 (11:34→18:28)
[2017-12-14] MEDS: Budesonide 0.5 MG/2 ML Neb Susp NEB SCH ×2 (11:59→18:28)
--- NOTE | 2017-12-14 14:57 | PCM.PN ---
- General Info Date of Service: 12/14/17 Subjective Update: 27-year-old at approximately 14 weeks gestation, HD#2 for acute asthma exacerbation. Patient received a dose of magnesium on HD#1 and has been on 60 mg oral steroids daily in addition to Pulmicort twice daily and Duo-nebs every 2 -3 hours. She has albuterol nebs PRN every hour but has not needed to use them. Patient has been able to space out her nebulizers to every 3 hours at times but at other times still needs them every 2 hours. She requires oxygen only after activity when she feels short of breath. She has otherwise not required oxygen. No dizziness, headache or lightheadedness. No fevers or chills. Patient feels her breathing is still not normal but has improved significantly. I spoke to Dr. Woody, Pulmonology, yesterday regarding the patient. He recommended that she continue on Pulmicor, and start Brovana 15 mcg twice daily , Spiriva Respiman 1.25 mcg daily and continue with steroids. He recommended a slow taper to prevent rebound asthma exacerbation after her acute exacerbation has resolved. He advised me to call the clinic on the day of discharge, and he will see her for follow-up. Functional Status: Reports: Tolerating Diet, Ambulating. Denies: New Symptoms - Review of Systems General: Reports: No Symptoms HEENT: Reports: No Symptoms Pulmonary: Reports: Shortness of Breath, Cough Cardiovascular: Reports: No Symptoms Gastrointestinal: Reports: No Symptoms Genitourinary: Reports: No Symptoms Musculoskeletal: Reports: No Symptoms Skin: Reports: No Symptoms - Patient Data Vitals - Most Recent: Last Vital Signs Temp 36.6 C 12/14/17 11:00 Pulse 108 H 12/14/17 11:59 Resp 28 H 12/14/17 11:00 BP 117/81 12/14/17 11:00 Pulse Ox 97 12/14/17 11:00 Weight - Most Recent: 99.427 kg I&O - Last 24 Hours: Intake & Output 12/13/17 12/14/17 12/14/17 22:59 06:59 14:59 Intake Total 700 250 580 Output Total 1000 Balance 700 -750 580 Med Orders - Current: Current Medications Acetaminophen (Tylenol Extra Strength) 1,000 mg PO Q6H PRN PRN Reason: Pain Last Admin: 12/14/17 04:15 Dose: 1,000 mg Albuterol (Proventil Neb Soln) 2.5 mg NEB Q1H PRN PRN Reason: dyspnea Albuterol/Ipratropium (Duoneb 3.0-0.5 Mg/3 Ml) 3 ml NEB Q2H [facility] Last Admin: 12/14/17 11:59 Dose: 3 ml Budesonide (Pulmicort) 0.5 mg NEB BIDRT [facility] Last Admin: 12/14/17 11:59 Dose: 0.5 mg Guaifenesin (Robitussin) 100 mg PO Q4H PRN PRN Reason: Cough Last Admin: 12/14/17 06:06 Dose: 100 mg Methylprednisolone Sodium Succinate (Solu-Medrol) 125 mg IVPUSH DAILY [facility] Last Admin: 12/14/17 11:05 Dose: 125 mg Montelukast Sodium (Singulair) 10 mg PO DAILY [facility] Last Admin: 12/14/17 09:51 Dose: 10 mg Brovana 15mcg/2ml (NebNon-Form) 1 each INH BIDRT [facility] Last Admin: 12/14/17 11:34 Dose: 1 each Sodium Chloride (Saline Flush) 10 ml FLUSH ASDIRECTED PRN PRN Reason: Keep Vein Open Last Admin: 12/13/17 20:59 Dose: 10 ml Tiotropium Keenes (Spiriva Handihaler) 18 mcg INH DAILY [facility] Last Admin: 12/14/17 10:56 Dose: 18 mcg Discontinued Medications Albuterol (Proventil Neb Soln) 2.5 mg NEB ONETIME ONE Stop: 12/12/17 03:17 Last Admin: 12/12/17 03:23 Dose: 2.5 mg Guaifenesin (Robitussin) 100 mg PO Q6H PRN PRN Reason: Cough Last Admin: 12/13/17 09:07 Dose: 100 mg Magnesium Sulfate 2 gm/ Premix 50 mls @ 25 mls/hr IV ONETIME ONE Stop: 12/12/17 14:54 Last Admin: 12/12/17 13:19 Dose: 25 mls/hr Influenza Virus Vaccine (Pharmacy To Dose - Influenza Vaccine) 1 each IM ONETIME ONE Stop: 12/12/17 05:11 Influenza Virus Vaccine (Flucelvax Quad [id number]) 60 mcg IM ATDISCHARGE PRN PRN Reason: Other Methylprednisolone Sodium Succinate (Solu-Medrol) 125 mg IVPUSH ONETIME ONE Stop: 12/12/17 03:17 Last Admin: 12/12/17 03:23 Dose: 125 mg Montelukast Sodium (Singulair) 10 mg PO ONETIME ONE Stop: 12/12/17 08:41 Last Admin: 12/12/17 09:55 Dose: Not Given Prednisone (Prednisone) 60 mg PO DAILY [facility] Last Admin: 12/14/17 09:41 Dose: Not Given - Exam General: Alert, Oriented HEENT: Pupils Equal, Pupils Reactive Lungs: Decreased Breath Sounds (Still decreased but air movemetn has increased) , Wheezing (Intermittent inspiratory, consistent expiratory wheezes), Other ( Increased work of breathing after activity; normal respiratory effort at rest) Cardiovascular: Regular Rate, Regular Rhythm, No Murmurs Extremities: No Pedal Edema Skin: Warm, Dry, Intact - Problem List & Annotations (1) Exacerbation of asthma SNOMED Code(s): 467922454 Code(s): J45.901 - UNSPECIFIED ASTHMA WITH (ACUTE) EXACERBATION Status: Acute Current Visit: Yes Qualifiers: Asthma severity: moderate Asthma persistence: persistent Qualified Code(s ): J45.41 - Moderate persistent asthma with (acute) exacerbation (2) Second trimester SNOMED Code(s): 05600277 Code(s): Z34.92 - ENCNTR FOR SUPRVSN OF NORMAL PREG, UNSP, SECOND TRIMESTER Status: Acute Current Visit: Yes - Problem List Review Problem List Initiated/Reviewed/Updated: Yes - My Orders Last 24 Hours: My Active Orders 12/13/17 14:03 guaiFENesin [Robitussin] 100 mg PO Q4H PRN 12/13/17 15:56 Communication Order [RC] DAILY 12/14/17 09:29 RT Post Treatment Assessment [RC] Click to Edit RT Pre-Treatment Assessment [RC] Click to Edit 12/14/17 09:30 Tiotropium [Spiriva HandiHaler] 18 mcg INH DAILY 12/14/17 11:00 methylPREDNISolone Sod Succ [Solu-MEDROL] 125 mg IVPUSH DAILY 12/14/17 11:30 Non-Formulary Medication [NF Drug] 1 each INH BIDRT - Assessment Assessment:: 27-year-old at 40 weeks gestation, hospital day #2 for acute asthma exacerbation --Improving - Plan Plan:: 1. Continue Pulmicort at current dosing 2. Start Spiriva 18 mcg daily 3. Start Brovana 15 mcg daily 4. Stop prednisone 60 mg daily. Start IV Solumedrol 125 mg daily 5. Continue Tylenol and cough syrup PRN 6. Continue to wean Duo-neb frequency as tolerated. 7. Anticipate at least another 48 hours of treatment before discharge. Dr. Perez will assume care for the patient over the weekend. Patient will see Pulmonology after discharge. Smita Lin MD
[2017-12-15] MEDS: Albuterol/Ipratropium 3.0-0.5 MG/3 ML Neb Soln NEB SCH ×9 (00:30→21:55)
[2017-12-15] MEDS: Tiotropium Inhaler 18 MCG Inhalation Powder Cap Kit of 5 INH SCH (10:17)
[2017-12-15] MEDS: Budesonide 0.5 MG/2 ML Neb Susp NEB SCH ×2 (10:18→17:52)
[2017-12-15] MEDS: [UNRECOGNIZED DRUG - REMARK] INH SCH ×2 (10:18→17:52)
[2017-12-15] MEDS: methylPREDNISolone Sodium Succinate 125 MG/2 ML SDV IVPUSH SCH (10:32)
[2017-12-15] MEDS: Montelukast 10 MG Tab PO SCH (10:32)
[2017-12-15] MEDS: Sodium Chloride 0.9% 10 ML Syringe FLUSH PRN ×2 (10:32→20:52)
--- NOTE | 2017-12-15 11:01 | PN ---
DATE: 12/15/2017 SUBJECTIVE INFORMATION: A 27-year-old , G4, P3, at approximately 14 weeks gestation in the hospital for acute exacerbation of her reactive airway disease, currently on her third day of hospitalization. Received a dose of magnesium on admission and was started on oral steroids plus Pulmicort and DuoNebs. Dr. Lin visited with Dr. Singer, and she was subsequently started on Solu-Medrol 125 mg IV daily, Brovana 15 mcg daily, Spiriva 18 mcg daily, and plan to continue the Pulmicort and nebulizer with DuoNeb. The patient reports that she is feeling improved today. Her shortness of breath is much improved. She is using 2 L of oxygen intermittently. She does feel like we could space out her breathing treatments which currently have been about every 2 hours. She denies any cramping or bleeding. She is eating well and has been able to ambulate. She is voiding and stooling without difficulty. She denies any new concerns today. PHYSICAL EXAMINATION: VITAL SIGNS: On examination, she has not had a treatment with a nebulizer for over 3 hours now and is just about to get one. Her last vitals show temp of 98.6, her pulse was 104 prior to treatment and 119 after. Her O2 sat has been running in the mid 90s with her last reading of 98. Respiratory rate 20, blood pressure 113/66. SKIN: Her skin color and turgor are excellent. RESPIRATORY: She has inspiratory and expiratory wheezing, but has fairly good air exchange and does not appear to be in any acute respiratory distress. RT is here to give her treatment and will re-evaluate her following that. Please see their notes for details. IMPRESSION: A 27-year-old G4, P3, at 14 weeks gestation with acute exacerbation of her reactive airway disease requiring hospitalization, improved. PLAN: We will continue steroids, Spiriva, Brovana, Pulmicort at current dosing. Continue with her cough syrup and Tylenol p.r.n. Continue with her DuoNeb treatments and we will space them out to q.4 hours today. I have talked to the RT and will have them allow q.2 hours treatments p.r.n. between only if needed. We will wean off her oxygen as tolerated. We will look at weaning her medications tomorrow. I think it is likely she will be in at least until Sunday. Dr. Singer has recommended a tapering dose of the oral steroids on discharge and also will see her for consultation after discharge. Further management pending her clinical course. We will have OB nurses check heart tones Q.shift and p.r.n. All questions were answered for staff and the patient. Further management pending her clinical course and response to treatment. [facility] /[id number]
[2017-12-15] MEDS: Acetaminophen 500 MG Tab PO PRN (13:37)
[2017-12-16] MEDS: Albuterol/Ipratropium 3.0-0.5 MG/3 ML Neb Soln NEB SCH ×6 (01:43→21:40)
[2017-12-16] MEDS: [UNRECOGNIZED DRUG - REMARK] INH SCH ×2 (08:48→18:20)
[2017-12-16] MEDS: Tiotropium Inhaler 18 MCG Inhalation Powder Cap Kit of 5 INH SCH (08:48)
[2017-12-16] MEDS: Budesonide 0.5 MG/2 ML Neb Susp NEB SCH ×2 (08:48→18:20)
[2017-12-16] MEDS: methylPREDNISolone Sodium Succinate 125 MG/2 ML SDV IVPUSH SCH (08:50)
[2017-12-16] MEDS: Montelukast 10 MG Tab PO SCH (08:50)
[2017-12-16] MEDS: Acetaminophen 500 MG Tab PO PRN (16:33)
--- NOTE | 2017-12-16 18:12 | PN ---
DATE: 12/16/2017 SUBJECTIVE INFORMATION: A 27-year-old , G4, P3, at 14 weeks gestation, hospitalized for acute exacerbation of reactive airway disease in her 4th day of hospitalization. She is doing well today and has no new concerns. Feels markedly improved from yesterday. Please see my note of yesterday for details. She did receive a dose of magnesium on admission. Subsequently, has been started on steroids, Brovana, Spiriva, is taking Singulair, is on Pulmicort, and nebulized DuoNeb. Also, has Tylenol and Robitussin DM ordered on a p.r.n. basis. Reports that she is now off her oxygen. She has been able to ambulate. She is eating well. We spaced her breathing treatments out yesterday. She did use breathing treatments q.4 hours during the night, but did not feel very symptomatic when awoken for her treatments. She reports no cramping, bleeding, or other OB concerns. We have been checking heart tones every shift and no new OB concerns at all today. OBJECTIVE: General: On exam today, her skin color and turgor are excellent. Her mood is good. She answers questions appropriately and speech is good with no sign of shortness of breath and she is able to complete her sentence without difficulty. Vital Signs: Excellent with her pulse 96, her O2 sat has been running 97 to 98 without oxygen, respiratory rate has been 16 to 20, her blood pressure is normal, she is afebrile. Skin: No cyanosis. Skin color and turgor are excellent. Respiratory: Continues to have both inspiratory and expiratory wheezing, but air exchange appears good and she does not appear to be in any acute respiratory distress. Her wheezing is improved, but still present in all lung clarke. Heart: Rate is regular with no murmur or ectopy. Abdomen: Benign. Extremities: She has no significant edema. IMPRESSION: A 27-year-old G3, P4, early second trimester with acute exacerbation of reactive airway disease requiring hospitalization, much improved today, and we will plan for discharge plan tomorrow morning. PLAN: We will continue with her current treatment today and space out her nebulizer treatments to q.i.d. while awake. We will allow her to sleep through the night if possible and we will have her requested treatment if she wakes up and feels short of breath, or if nursing staff notices any change in her vitals or O2 sat that would require treatment. Otherwise, we will plan on Dr. Lin seeing and likely discharging her in the morning with the discharge plan as outlined by Dr. Lin and Dr. Singer. He will then see her as an outpatient for Pulmonary consult following the discharge. We will otherwise keep her current medications as ordered. They can continue with her vitals as noted while awake and heart tones every shift, but do not need to wake her to check her vitals if everything is appearing stable. All the questions were answered and the patient and staff appear comfortable with this plan. Further management pending her clinical course and as noted. Plan for discharge in the morning if clinically stable per Dr. Lin. [facility] /[id number]
[2017-12-17] MEDS: Albuterol/Ipratropium 3.0-0.5 MG/3 ML Neb Soln NEB SCH ×2 (07:09→11:05)
[2017-12-17] MEDS: Budesonide 0.5 MG/2 ML Neb Susp NEB SCH (07:09)
[2017-12-17] MEDS: [UNRECOGNIZED DRUG - REMARK] INH SCH (07:09)
[2017-12-17 07:44] VITALS: BP 128/80
[2017-12-17] MEDS: methylPREDNISolone Sodium Succinate 125 MG/2 ML SDV IVPUSH SCH (09:17)
[2017-12-17] MEDS: Tiotropium Inhaler 18 MCG Inhalation Powder Cap Kit of 5 INH SCH (09:17)
[2017-12-17] MEDS: Sodium Chloride 0.9% 10 ML Syringe FLUSH PRN (09:18)
[2017-12-17] MEDS: Montelukast 10 MG Tab PO SCH (09:18)
--- NOTE | 2017-12-17 10:02 | PCM.DCSUM1 ---
Discharge Summary - Hospital Course Free Text/Narrative:: 27-year-old at approximately 14 weeks gestation, HD#5 for acute asthma exacerbation in . Patient received a dose of magnesium the day of admission. She has been on steroids, Pulmicort and Duo-Nebs since admission. On 12/14/17, Brovana and Spiriva were started. Over the weekend, her oxygen demand decreased. She also has spaced out her Duo-Nebs significantly since admission and was started on QID nebs yesterday. - Discharge Data Discharge Date: 12/17/17 Discharge Disposition: Home, Self-Care 01 Condition: Good - Discharge Diagnosis/Problem(s) (1) Exacerbation of asthma SNOMED Code(s): 433855791 ICD Code: J45.901 - UNSPECIFIED ASTHMA WITH (ACUTE) EXACERBATION Status: Acute Current Visit: Yes Qualifiers: Asthma severity: moderate Asthma persistence: persistent Qualified Code(s ): J45.41 - Moderate persistent asthma with (acute) exacerbation (2) Second trimester SNOMED Code(s): 33732587 ICD Code: Z34.92 - ENCNTR FOR SUPRVSN OF NORMAL PREG, UNSP, SECOND TRIMESTER Status: Acute Current Visit: Yes - Patient Summary/Data Operative Procedure(s) Performed: None Complications: None Consults: None Labs Pending at D/C: None Recommended Follow-up Testing/Procedures: None Planned Operative Procedure(s) after DC: None Hospital Course: (Please see subjective section) - Patient Instructions Diet: Usual Diet as Tolerated Activity: As Tolerated Driving: May Drive Today Showering/Bathing: May Shower Notify Provider of: Fever - Discharge Plan Home Medications: Home Meds Vit W-Ca,Fe,FA(<1 mg) [ Vitamins] 1 tab PO DAILY 04/28/17 [ History] Albuterol [Proventil Neb Soln] 1.25 mg NEB ASDIRECTED PRN 12/12/17 [History] Albuterol/Ipratropium [DuoNeb 3.0-0.5 MG/3 ML] 3 ml .XX ASDIRECTED PRN 12/12/17 [History] Folic Acid 1 mg PO DAILY 12/12/17 [History] Montelukast Sodium [Singulair] 10 mg PO DAILY 12/12/17 [History] Acetaminophen [Tylenol Extra Strength] 1,000 mg PO Q6H PRN tablet 12/17/17 [Rx] Budesonide [Pulmicort] 0.5 mg NEB BIDRT neb 12/17/17 [Rx] Montelukast [Singulair] 10 mg PO DAILY tablet 12/17/17 [Rx] Non-Formulary Medication [NF Drug] 1 each INH BIDRT each 12/17/17 [Rx] Tiotropium [Spiriva HandiHaler] 18 mcg INH DAILY cap 12/17/17 [Rx] Forms: ED Department Discharge Referrals: Vinh Singer MD [Physician] - (TBD Will call patient tomorrow with appointment date/time) - Discharge Summary/Plan Comment DC Time >30 min.: No Discharge Summary/Plan Comment: As patient has been stable for the past 24 hours, will discharge home today. Dr. Woody, Pulmonology is out of the office today. We will contact his office and the patient with a follow-up appointment date/time for later this week. Patient will be discharged home on Brovana, Pulmicort, Spiriva Respimat, and a long steroid taper. She should continue her home dose of Singulair and her Duo-Nebs and albuterol nebs as needed. [facility] [employer]. Patient has an OB appointment with Beatris Heaton NP at [facility] next week. She was encouraged to keep this appointment. She will follow with Beatris until later in when she transfers care to [facility]. Reasons to return or present to the ED were reviewed with the patient, and all questions were answered. Smita Lin MD - General Info Date of Service: 12/17/17 Subjective Update: Patient is doing well today. She had not required any oxygen supplementation for over 24 hours. Her nebulizer have worked well, and she did not require any overnight. She is no longer SOB with activity. No fever or chills. No dizziness or lightheadedness. Patient feels she is at her baseline and would like to be discharged today. - Patient Data Vitals - Most Recent: Last Vital Signs Temp 36.6 C 12/17/17 07:43 Pulse 110 H 12/17/17 07:43 Resp 20 12/17/17 07:43 BP 128/80 12/17/17 07:43 Pulse Ox 97 12/17/17 08:00 Weight - Most Recent: 99.427 kg I&O - Last 24 hours: Intake & Output 12/16/17 12/17/17 12/17/17 22:59 06:59 14:59 Intake Total 440 Balance 440 Med Orders - Current: Current Medications Acetaminophen (Tylenol Extra Strength) 1,000 mg PO Q6H PRN PRN Reason: Pain Last Admin: 12/16/17 16:33 Dose: 1,000 mg Albuterol (Proventil Neb Soln) 2.5 mg NEB Q1H PRN PRN Reason: dyspnea Last Admin: 12/16/17 08:47 Dose: 2.5 mg Albuterol/Ipratropium (Duoneb 3.0-0.5 Mg/3 Ml) 3 ml NEB QIDRT [facility] Last Admin: 12/17/17 07:09 Dose: 3 ml Budesonide (Pulmicort) 0.5 mg NEB BIDRT [facility] Last Admin: 12/17/17 07:09 Dose: 0.5 mg Guaifenesin (Robitussin) 100 mg PO Q4H PRN PRN Reason: Cough Last Admin: 12/14/17 22:54 Dose: 100 mg Methylprednisolone Sodium Succinate (Solu-Medrol) 125 mg IVPUSH DAILY [facility] Last Admin: 12/17/17 09:17 Dose: 125 mg Montelukast Sodium (Singulair) 10 mg PO DAILY [facility] Last Admin: 12/17/17 09:18 Dose: 10 mg Brovana 15mcg/2ml (NebNon-Form) 1 each INH BIDRT [facility] Last Admin: 12/17/17 07:09 Dose: 1 each Sodium Chloride (Saline Flush) 10 ml FLUSH ASDIRECTED PRN PRN Reason: Keep Vein Open Last Admin: 12/17/17 09:18 Dose: 10 ml Tiotropium [place] (Spiriva Handihaler) 18 mcg INH DAILY [facility] Last Admin: 12/17/17 09:17 Dose: 18 mcg Discontinued Medications Albuterol (Proventil Neb Soln) 2.5 mg NEB ONETIME ONE Stop: 12/12/17 03:17 Last Admin: 12/12/17 03:23 Dose: 2.5 mg Albuterol/Ipratropium (Duoneb 3.0-0.5 Mg/3 Ml) 3 ml NEB Q2H [facility] Last Admin: 12/15/17 10:37 Dose: Not Given Albuterol/Ipratropium (Duoneb 3.0-0.5 Mg/3 Ml) 3 ml NEB Q4HR [facility] Last Admin: 12/16/17 16:34 Dose: Not Given Guaifenesin (Robitussin) 100 mg PO Q6H PRN PRN Reason: Cough Last Admin: 12/13/17 09:07 Dose: 100 mg Magnesium Sulfate 2 gm/ Premix 50 mls @ 25 mls/hr IV ONETIME ONE Stop: 12/12/17 14:54 Last Admin: 12/12/17 13:19 Dose: 25 mls/hr Influenza Virus Vaccine (Pharmacy To Dose - Influenza Vaccine) 1 each IM ONETIME ONE Stop: 12/12/17 05:11 Influenza Virus Vaccine (Flucelvax Quad [id number]) 60 mcg IM ATDISCHARGE PRN PRN Reason: Other Methylprednisolone Sodium Succinate (Solu-Medrol) 125 mg IVPUSH ONETIME ONE Stop: 12/12/17 03:17 Last Admin: 12/12/17 03:23 Dose: 125 mg Montelukast Sodium (Singulair) 10 mg PO ONETIME ONE Stop: 12/12/17 08:41 Last Admin: 12/12/17 09:55 Dose: Not Given Prednisone (Prednisone) 60 mg PO DAILY [facility] Last Admin: 12/14/17 09:41 Dose: Not Given - Exam General: Reports: Alert, Oriented HEENT: Reports: Pupils Equal, Mucous Membr. Moist/[place] Lungs: Reports: Clear to Auscultation, Normal Respiratory Effort. Denies: Decreased Breath Sounds, Wheezing Cardiovascular: Reports: Regular Rate, Regular Rhythm, No Murmurs Back Exam: Reports: Normal Inspection Extremities: Normal Inspection Skin: Reports: Warm, Dry, Intact Neurological: Reports: No New Focal Deficit *Q Meaningful Use (DIS) - VTE *Q VTE Criteria *Q: - Stroke *Q Stroke Criteria *Q: - AMI *Q AMI Criteria *Q:
[2017-12-17] MEDS ORDERED: FLU VAC QS 17-18(4YR UP)CEL/PF 60 MCG/0.5 ML Syringe IM ONE (10:30)
== END 2017-12-17 12:30 | disposition home or self-care (01) | DRG 203 ==
LOC: DL.ED 03:05 → DL.MS 04:07 → UNDOADMIN 04:07 → DL.MS 04:13
PROVIDERS: ADMIT Family Medicine; ATTEND Family Medicine
DX: J45.901 Unspecified asthma with (acute) exacerbation (principal); Z34.82 Encounter for supervision of other normal pregnancy, second trimester; Z79.899 Other long term (current) drug therapy
CPT/HCPCS: 36415; 71046; 80053; 83605; 83735; 85025; 86140; 90674; 94640; 96374; 99285; A9270-GY; J2930; J3475; J7050; J7620-GY

== ENCOUNTER 2018-06-08 20:22 | Emergency (ER) | payer MEDICAID ==
[2018-06-08] MEDS ORDERED: Clindamycin Phosphate 900 MG in Sodium Chloride 0.9% 100 ML IV ONE (21:38)
[2018-06-08] MEDS ORDERED: Ondansetron 4 MG/2 ML SDV IV ONE (21:38)
[2018-06-08] MEDS ORDERED: Morphine 2 MG/ML Syringe IVPUSH ONE (21:38)
[2018-06-08] MEDS ORDERED: Sodium Chloride 0.9% 1,000 ML IV ONE (21:38)
[2018-06-08 21:57] LABS: CHLORIDE,CL 106 mmol/L (101-111); SODIUM,NA 139 mmol/L (135-145)
[2018-06-08] MEDS ORDERED: Iopamidol 612 MG/ML 100 ML Bottle IVPUSH ONE (22:13)
[2018-06-08] MEDS ORDERED: cloNIDine 0.1 MG Tab PO ONE (23:22)
[2018-06-08] MEDS ORDERED: diphenhydrAMINE 50 MG/ML SDV IVPUSH ONE (23:29)
[2018-06-09] MEDS ORDERED: cloNIDine 0.1 MG Tab PO ONE (00:23)
[2018-06-09 00:30] VITALS: BP 179/100
--- NOTE | 2018-06-09 00:50 | EDM.PDOC ---
ED HPI GENERAL MEDICAL PROBLEM - General Chief Complaint: Wound Recheck Stated Complaint: INCISION PAIN [id number] Time Seen by Provider: 06/09/18 00:46 Source of Information: Reports: Patient History Limitations: Reports: No Limitations - History of Present Illness INITIAL COMMENTS - FREE TEXT/NARRATIVE: s/p 1 week. 2 days ago started having pain in incision area. 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, NSAIDS Bilateral Lower Abdomen Pain Score (Numeric/FACES): 9 Bilateral Head Pain Score (Numeric/FACES): 9 - Related Data Allergies Allergy/AdvReac Type Severity Reaction Status Date / Time No Known Allergies Allergy Verified 05/29/18 23:41 Past Medical History - Past Health History Medical/Surgical History: Denies Medical/Surgical History HEENT History: Reports: None Cardiovascular History: Reports: Hypertension Respiratory History: Reports: Asthma, Other (See Below) Other Respiratory History: RAD Gastrointestinal History: Reports: None Genitourinary History: Reports: None COLLECTIONS ANALYST 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: Reports: Other COLLECTIONS ANALYST History: hx abnormal pap and colposcopy, hx Musculoskeletal History: Reports: None Neurological History: Reports: None Psychiatric History: Reports: Anxiety, Panic Attack Endocrine/Metabolic History: Reports: Obesity/BMI 30+ Hematologic History: Reports: Anemia Immunologic History: Reports: None Oncologic (Cancer) History: Reports: None Dermatologic History: Reports: None - Infectious Disease History Infectious Disease History: Reports: None - Past Surgical History Head Surgeries/Procedures: Reports: None Female Surgical History: Reports: Section Social & Family History - Family History Family Medical History: Noncontributory - Tobacco Use Smoking Status *Q: Current Every Day Smoker Years of Tobacco use: 13 Packs/Tins Daily: 1 - Caffeine Use Caffeine Use: Reports: Coffee - Recreational Drug Use Recreational Drug Use: No - Sexual History Sexual History: Reports: Sexually Active - Living Situation & Occupation Living situation: Reports: with Family Occupation: Unemployed ED ROS GENERAL - Review of Systems Review Of Systems: ROS reveals no pertinent complaints other than HPI. ED EXAM, SKIN/RASH Exam: See Below Exam Limited By: No Limitations General Appearance: Alert, WD/WN, Mild Distress, Other (discomfort) Ears: Hearing Grossly Normal Throat/Mouth: Normal Voice, No Airway Compromise Head: Atraumatic Neck: Non-Tender, Full Range of Motion Respiratory/Chest: No Respiratory Distress Cardiovascular: Regular Rate, Rhythm GI/Abdominal: Tender, Other (cellulitis over incision). No: No Organomegaly, Guarding, Rigid, Rebound Neurological: Alert, Oriented, Normal Cognition, Normal Gait, No Motor/Sensory Deficits Psychiatric: Tearful Skin: Warm, Dry, Normal Color Location, Skin: Abdomen Characteristics: Erythematous Associated features: Tenderness, Swelling, Inflammation. No: Lymphangitis Course - Vital Signs Last Recorded V/S: Last Vital Signs Temp 37.0 C 06/08/18 20:55 Pulse 95 06/08/18 20:55 Resp 20 06/08/18 20:55 BP 179/100 H 06/09/18 00:29 Pulse Ox 97 06/08/18 20:55 - Orders/Labs/Meds Orders: Active Orders 24 hr Category Date Time Status CULTURE BLOOD [BC] Stat Lab 06/08/18 21:30 Received Labs: Laboratory Tests 06/08/18 06/08/18 06/08/18 Range/Units 21:30 21:30 21:30 WBC 8.1 (5.0-10.0) 10^3/uL RBC 4.12 L (4.2-5.4) 10^6/uL Hgb 8.7 L (12.0-16.0) g/dL Hct 29.8 L (37.0-47.0) % MCV 72.3 L (80-100) fL MCH 21.1 L (27.0-34.0) pg MCHC 29.2 L (33.0-35.0) g/dL Plt Count 354 D (150-450) 10^3/uL Neut % (Auto) 65.2 (42.2-75.2) % Lymph % (Auto) 23.6 (20.5-50.1) % [place] % (Auto) 5.7 (2-8) % Eos % (Auto) 5.3 H (1.0-3.0) % Baso % (Auto) 0.2 (0.0-1.0) % Sodium 139 (135-145) mmol/L Potassium 4.0 (3.6-5.0) mmol/L Chloride 106 (101-111) mmol/L Carbon Dioxide 24.0 (21.0-31.0) mmol/L Anion Gap 13.0 BUN 8 (7-18) mg/dL Creatinine 0.7 (0.6-1.3) mg/dL Est Cr Clr Drug Dosing 102.40 mL/min Estimated GFR (MDRD) > 60 BUN/Creatinine Ratio 11.42 Glucose 97 (74-105) mg/dL Lactic Acid 0.8 (0.5-2.2) mmol/L Calcium 8.2 L (8.4-10.2) mg/dl Total Bilirubin 0.8 (0.2-1.0) mg/dL AST 18 (10-42) IU/L ALT 20 (10-60) IU/L Alkaline Phosphatase 91 (42-121) IU/L Total Protein 6.8 (6.7-8.2) g/dl Albumin 2.9 L (3.2-5.5) g/dl Globulin 3.9 Albumin/Globulin Ratio 0.74 Meds: Medications Discontinued Medications Generic Name Dose Route Start Last Admin Trade Name Freq PRN Reason Stop Dose Admin Clonidine HCl 0.1 mg 06/08/18 23:22 06/08/18 23:42 Catapres PO 06/08/18 23:23 0.1 mg ONETIME ONE Administration Clonidine HCl 0.1 mg 06/09/18 00:23 06/09/18 00:29 Catapres PO 06/09/18 00:24 0.1 mg ONETIME ONE Administration Diphenhydramine HCl 25 mg 06/08/18 23:29 06/08/18 23:48 Benadryl IVPUSH 06/08/18 23:30 Not Given ONETIME ONE Clindamycin Phosphate 900 mg/ 106 mls @ 200 mls/hr 06/08/18 21:38 06/08/18 21 :55 Sodium Chloride IV 06/08/18 22:09 200 mls/hr ONETIME ONE Administration Sodium Chloride 1,000 mls @ 999 mls/hr 06/08/18 21:38 06/08/18 21:52 Normal Saline IV 06/08/18 22:38 999 mls/hr .BOLUS ONE Administration Iopamidol 100 ml 06/08/18 22:13 06/08/18 22:38 Isovue-300 (61%) IVPUSH 06/08/18 22:14 100 ml ONETIME ONE Administration Morphine Sulfate 2 mg 06/08/18 21:38 06/08/18 21:56 Morphine IVPUSH 06/08/18 21:39 2 mg ONETIME ONE Administration Ondansetron HCl 4 mg 06/08/18 21:38 06/08/18 21:56 Zofran IV 06/08/18 21:39 4 mg ONETIME ONE Administration - Re-Assessments/Exams Free Text/Narrative Re-Assessment/Exam: 06/09/18 00:48 results discussed with pt. Departure - Departure Time of Disposition: 00:48 Disposition: Home, Self-Care 01 Condition: Good Clinical Impression: Cellulitis Qualifiers: Site of cellulitis: trunk Site of cellulitis of trunk: abdominal wall Qualified Code(s): L03.311 - Cellulitis of abdominal wall Hypertension Qualifiers: Hypertension type: unspecified Qualified Code(s): I10 - Essential (primary) hypertension - Discharge Information Instructions: Cellulitis, Adult, [id number] Additional Instructions: 1) keep area clean and dry 2) see family doctor Sunday for wound recheck and blood pressure issue rx givne; clindamycin 150mg qid x 40 catapress 0.1mg bid x 6 - My Orders Last 24 Hours: My Active Orders 06/08/18 21:30 CULTURE BLOOD [BC] Stat - Assessment/Plan Last 24 Hours: My Active Orders 06/08/18 21:30 CULTURE BLOOD [BC] Stat
== END 2018-06-09 01:05 | disposition home or self-care (01) ==
LOC: DL.ED 20:22
DX: L03.311 Cellulitis of abdominal wall (principal); I10 Essential (primary) hypertension; F17.210 Nicotine dependence, cigarettes, uncomplicated; J45.909 Unspecified asthma, uncomplicated
CPT/HCPCS: 36415; 74177; 80053; 83605; 85025; 87040; 96361; 96365; 96375; 99284; A9270; J2270; J2405; J3490; J7030; J7050; Q9967

== ENCOUNTER 2021-04-17 19:19 | Emergency (ER) | payer MEDICAID ==
[2021-04-17 19:35] VITALS: BP 116/75; PULSE 111
--- NOTE | 2021-04-17 20:21 | EDM.PDOC ---
ED HPI GENERAL MEDICAL PROBLEM - General Chief Complaint: General Stated Complaint: BY AMBULANCE Time Seen by Provider: 04/17/21 19:41 Source of Information: Reports: Patient, RN History Limitations: Reports: No Limitations - History of Present Illness INITIAL COMMENTS - FREE TEXT/NARRATIVE: 31-year-old female who presents to the ER via EMS with complaints of generalized pain. Patient reports pain began in her feet and later in her back and into her hands. She reports having 4 kids and is always on her feet. She states pain started 3 days ago and has been on and off. She has not tried anything for symptoms apart from meth. She denies any injuries. She denies any fevers, chills, shortness of breath, palpitation, abdominal problems, urinary problems at this time. She admits she drinks occasionally and uses meth 2 times a week with her last use 2 days ago. She states she does not think she has an addiction problem. Generalized Pain Score (Numeric/FACES): 6 - Related Data Allergies Allergy/AdvReac Type Severity Reaction Status Date / Time No Known Allergies Allergy Verified 11/01/20 03:13 Home Meds: Home Meds . [No Known Home Meds] 07/12/18 [History] Past Medical History - Past Health History Medical/Surgical History: Denies Medical/Surgical History HEENT History: Reports: None Cardiovascular History: Reports: Hypertension Respiratory History: Reports: Asthma, Other (See Below) Other Respiratory History: RAD Gastrointestinal History: Reports: None Genitourinary History: Reports: None YOU[employer] JUDGE History: Reports: Other YOU[employer] JUDGE History: hx abnormal pap and colposcopy, hx Musculoskeletal History: Reports: None Neurological History: Reports: None Psychiatric History: Reports: Anxiety, Panic Attack Endocrine/Metabolic History: Reports: Obesity/BMI 30+ Hematologic History: Reports: Anemia Immunologic History: Reports: None Oncologic (Cancer) History: Reports: None Dermatologic History: Reports: None - Infectious Disease History Infectious Disease History: Reports: None - Past Surgical History Head Surgeries/Procedures: Reports: None Female Surgical History: Reports: Section Social & Family History - Family History Family Medical History: No Pertinent Family History - Tobacco Use Tobacco Use Status *Q: Current Every Day Tobacco User Years of Tobacco use: 16 Packs/Tins Daily: 0.5 Second Hand Smoke Exposure: Yes - Caffeine Use Caffeine Use: Reports: Coffee - Recreational Drug Use Recreational Drug Use: Yes Drug Use in Last 12 Months: Yes Recreational Drug Type: Reports: Methamphetamine - Sexual History Sexual History: Reports: Sexually Active - Living Situation & Occupation Living situation: Reports: with Family Occupation: Unemployed ED ROS GENERAL - Review of Systems Review Of Systems: Comprehensive ROS is negative, except as noted in HPI. ED EXAM, GENERAL - Physical Exam Exam: See Below Exam Limited By: No Limitations General Appearance: Alert, No Apparent Distress Eye Exam: Bilateral Eye: PERRL Ears: Normal External Exam, Hearing Grossly Normal, Normal TMs, Other (pimple noted in the left ear canal) Ear Exam: Right Ear: Canal Normal Nose: Normal Inspection, Normal Mucosa, No Blood Throat/Mouth: Normal Inspection, Normal Lips, Normal Teeth, Normal Gums, Normal Oropharynx, Normal Voice, No Airway Compromise Head: Atraumatic, Normocephalic Neck: Normal Inspection, Supple, Non-Tender, Full Range of Motion Respiratory/Chest: No Respiratory Distress, Lungs Clear, Normal Breath Sounds, No Accessory Muscle Use, Chest Non-Tender Cardiovascular: Normal Peripheral Pulses, Regular Rate, Rhythm, No Edema, No Gallop, No JVD, No Murmur, No Rub Peripheral Pulses: 3+: Posterior Tibial (L), Posterior Tibial (R), Dorsalis Pedis (L), Dorsalis Pedis (R) GI/Abdominal: Normal Bowel Sounds, Soft, Non-Tender, No Organomegaly, No Distention, No Abnormal Bruit, No Mass (Female) Exam: Deferred Rectal (Female) Exam: Deferred Back Exam: Normal Inspection, Full Range of Motion, NT Extremities: Normal Inspection, Normal Range of Motion, Non-Tender, No Pedal Edema, Normal Capillary Refill Neurological: Alert, Oriented, CN II-XII Intact, Normal Cognition, Normal Gait, Normal Reflexes Psychiatric: Flat Affect Skin Exam: Warm, Intact Lymphatic: No Adenopathy Course - Vital Signs Last Recorded V/S: Last Vital Signs Temp 98.4 F 04/17/21 19:31 Pulse 111 H 04/17/21 19:31 Resp 18 04/17/21 19:31 BP 116/75 04/17/21 19:31 Pulse Ox 97 04/17/21 19:31 - Orders/Labs/Meds Labs: Laboratory Tests 07/25/21 07/25/21 07/25/21 Range/Units 20:30 20:30 21:14 WBC 11.7 H (5.0-10.0) 10^3/uL RBC 4.77 (4.2-5.4) 10^6/uL Hgb 11.9 L D (12.0-16.0) g/dL Hct 36.3 L (37.0-47.0) % MCV 76.1 L D (80-100) fL MCH 24.9 L (27.0-34.0) pg MCHC 32.8 L (33.0-35.0) g/dL Plt Count 340 D (150-450) 10^3/uL Neut % (Auto) 92.2 H (42.2-75.2) % Lymph % (Auto) 4.5 L (20.5-50.1) % Benson % (Auto) 2.0 (2-8) % Eos % (Auto) 1.2 (1.0-3.0) % Baso % (Auto) 0.1 (0.0-1.0) % Sodium 140 (136-145) mmol/L Potassium 4.0 (3.5-5.1) mmol/L Chloride 105 (98-107) mmol/L Carbon Dioxide 23 (21-32) mmol/L Anion Gap 16.0 H (7-13) mEq/L BUN 14 (7-18) mg/dL Creatinine 0.87 (0.55-1.02) mg/dL Est Cr Clr Drug Dosing 80.16 mL/min Estimated GFR (MDRD) > 60 BUN/Creatinine Ratio 16.1 (No establ ref range) Glucose 146 H (70-99) mg/dL Calcium 8.3 L (8.5-10.1) mg/dL Total Bilirubin 1.2 H (0.2-1.0) mg/dL AST 34 (15-37) U/L ALT 80 H (14-59) U/L Alkaline Phosphatase 181 H (46-116) U/L Total Protein 7.1 (6.4-8.2) g/dL Albumin 2.9 L (3.4-5.0) g/dL Globulin 4.2 Albumin/Globulin Ratio 0.69 Urine Color (YELLOW) Urine Appearance (CLEAR) Urine pH (5.0-9.0) Ur Specific [place] (1.005-1.030) Urine Protein (NEGATIVE) Urine Glucose (UA) (NEGATIVE) Urine Ketones (NEGATIVE) Urine Occult Blood (NEGATIVE) Urine Nitrite (NEGATIVE) Urine Bilirubin (NEGATIVE) Urine Urobilinogen (0.2-1.0) mg/dL Ur Leukocyte Esterase (NEGATIVE) Urine RBC /HPF Urine WBC (0-5/HPF) /HPF Ur Epithelial Cells (NOT SEEN) /HPF Urine Bacteria (0-FEW/HPF) /HPF Urine Trichomonas (NOT SEEN) /HPF Urine Opiates Screen Negative (NEGATIVE) Ur Oxycodone Screen Negative (NEGATIVE) Urine Methadone Screen Negative (NEGATIVE) Ur Barbiturates Screen Negative (NEGATIVE) U Tricyclic Antidepress Negative (NEGATIVE) Ur Phencyclidine Scrn Negative (NEGATIVE) Ur Amphetamine Screen Positive H (NEGATIVE) U Methamphetamines Scrn Positive H (NEGATIVE) Urine MDMA Screen Positive H (NEGATIVE) U Benzodiazepines Scrn Negative (NEGATIVE) Urine Cocaine Screen Negative (NEGATIVE) U Marijuana (THC) Screen Positive H (NEGATIVE) Ethyl Alcohol < 3 (0) mg/dL 04/17/21 Range/Units 21:14 WBC (5.0-10.0) 10^3/uL RBC (4.2-5.4) 10^6/uL Hgb (12.0-16.0) g/dL Hct (37.0-47.0) % MCV (80-100) fL MCH (27.0-34.0) pg MCHC (33.0-35.0) g/dL Plt Count (150-450) 10^3/uL Neut % (Auto) (42.2-75.2) % Lymph % (Auto) (20.5-50.1) % Benson % (Auto) (2-8) % Eos % (Auto) (1.0-3.0) % Baso % (Auto) (0.0-1.0) % Sodium (136-145) mmol/L Potassium (3.5-5.1) mmol/L Chloride (98-107) mmol/L Carbon Dioxide (21-32) mmol/L Anion Gap (7-13) mEq/L BUN (7-18) mg/dL Creatinine (0.55-1.02) mg/dL Est Cr Clr Drug Dosing mL/min Estimated GFR (MDRD) BUN/Creatinine Ratio (No establ ref range) Glucose (70-99) mg/dL Calcium (8.5-10.1) mg/dL Total Bilirubin (0.2-1.0) mg/dL AST (15-37) U/L ALT (14-59) U/L Alkaline Phosphatase (46-116) U/L Total Protein (6.4-8.2) g/dL Albumin (3.4-5.0) g/dL Globulin Albumin/Globulin Ratio Urine Color Dark yellow (YELLOW) Urine Appearance Slightly cloudy (CLEAR) Urine pH 6.0 (5.0-9.0) Ur Specific [place] >= 1.030 (1.005-1.030) Urine Protein 100 H (NEGATIVE) Urine Glucose (UA) Negative (NEGATIVE) Urine Ketones 80 H (NEGATIVE) Urine Occult Blood Trace-intact H (NEGATIVE) Urine Nitrite Negative (NEGATIVE) Urine Bilirubin Small H (NEGATIVE) Urine Urobilinogen 1.0 (0.2-1.0) mg/dL Ur Leukocyte Esterase Negative (NEGATIVE) Urine RBC 5-10 H /HPF Urine WBC 0-5 (0-5/HPF) /HPF Ur Epithelial Cells Moderate H (NOT SEEN) /HPF Urine Bacteria Many H (0-FEW/HPF) /HPF Urine Trichomonas Present H (NOT SEEN) /HPF Urine Opiates Screen (NEGATIVE) Ur Oxycodone Screen (NEGATIVE) Urine Methadone Screen (NEGATIVE) Ur Barbiturates Screen (NEGATIVE) U Tricyclic Antidepress (NEGATIVE) Ur Phencyclidine Scrn (NEGATIVE) Ur Amphetamine Screen (NEGATIVE) U Methamphetamines Scrn (NEGATIVE) Urine MDMA Screen (NEGATIVE) U Benzodiazepines Scrn (NEGATIVE) Urine Cocaine Screen (NEGATIVE) U Marijuana (THC) Screen (NEGATIVE) Ethyl Alcohol (0) mg/dL Meds: Medications Discontinued Medications Generic Name Dose Route Start Last Admin Trade Name Freq PRN Reason Stop Dose Admin Sodium Chloride 1,000 mls @ 1,000 mls/hr 04/17/21 20:25 04/17/21 20:37 Normal Saline IV 04/17/21 21:24 1,000 mls/hr .BOLUS ONE Administration - Re-Assessments/Exams Free Text/Narrative Re-Assessment/Exam: Exam findings and lab results with patient. IV fluids administered. RX for Flagyl BID x 7 days given to patient. Strongly recommended against drinking alcohol and taking antibiotics. Encourage patient to seek addiction treatment. Push fluids and rest. Follow-up with PCP in the clinic. Return to the ER if symptoms worsen. 04/17/21 23:13 Departure - Departure Time of Disposition: 23:15 Disposition: Home, Self-Care 01 Condition: Good Clinical Impression: Methamphetamine abuse, Ecstasy abuse, Marijuana abuse, Bacterial vaginosis - Discharge Information Instructions: Bacterial Vaginosis, [id number], Amphetamines Use Disorder, Methamphetamines Use Disorder Forms: ED Department Discharge Additional Instructions: Strongly recommended against drinking alcohol and taking antibiotics. Encourage patient to seek addiction treatment. Push fluids and rest. Follow-up with PCP in the clinic. Return to the ER if symptoms worsen. Sepsis Event Note (ED) - Evaluation Sepsis Screening Result: No Definite Risk - Focused Exam Vital Signs: Vital Signs Temp Pulse Resp BP Pulse Ox 04/17/21 19:31 98.4 F 111 H 18 116/75 97
[2021-04-17] MEDS ORDERED: Sodium Chloride 0.9% 1,000 ML IV ONE (20:25)
[2021-04-17 20:53] LABS: CHLORIDE,CL 105 mmol/L (98-107); SODIUM,NA 140 mmol/L (136-145)
[2021-04-17 21:31] LABS: AMPHETAMINES,URINE POSITIVE (NEGATIVE); BARBITURATES,URINE NEGATIVE (NEGATIVE); BENZODIAZEPINE,URINE NEGATIVE (NEGATIVE); MDMA (ECSTASY), URINE POSITIVE (NEGATIVE); METHADONE,URINE NEGATIVE (NEGATIVE); METHAMPHETAMINES,URINE POSITIVE (NEGATIVE); OPIATES,URINE NEGATIVE (NEGATIVE); OXYCODONE,URINE NEGATIVE (NEGATIVE); PHENCYCLIDINE,URINE NEGATIVE (NEGATIVE); TCA,URINE NEGATIVE (NEGATIVE)
== END 2021-04-17 23:25 | disposition home or self-care (01) ==
LOC: DL.ED 19:19
DX: N76.0 Acute vaginitis (principal); F12.10 Cannabis abuse, uncomplicated; F15.10 Other stimulant abuse, uncomplicated; B96.89 Other specified bacterial agents as the cause of diseases classified elsewhere; J45.909 Unspecified asthma, uncomplicated; I10 Essential (primary) hypertension; E66.9 Obesity, unspecified; Z72.0 Tobacco use; Z68.34 Body mass index [BMI] 34.0-34.9, adult
CPT/HCPCS: 36415; 80053; 80305-QW; 80307; 81001; 85025; 87210; 99283; J7030

== ENCOUNTER 2023-06-28 02:26 | Emergency (ER) | payer SELFPAY ==
[2023-06-28] MEDS: Sodium Chloride 0.9% 10 ML Syringe FLUSH PRN (02:16)
[2023-06-28] MEDS: Sodium Chloride 0.9% 1,000 ML IV ONE (02:27)
[2023-06-28] MEDS: Pantoprazole 40 MG Vial IVPUSH ONE (02:27)
[2023-06-28 02:28] LABS: BASOPHILS PERCENT AUTO 0.7 % (0.0-1.0); EOSINOPHILS PERCENT AUTO 8.7 % (1.0-3.0); HEMATOCRIT 39.8 % (37.0-47.0); HEMOGLOBIN 12.9 g/dL (12.0-16.0); LYMPHOCYTES PERCENT AUTO 38.9 % (20.5-50.1); MEAN CORPUSCULAR HGB CONC 32.4 g/dL (33.0-35.0); MEAN CORPUSCULAR VOLUME 77.1 fL (80-100); MONOCYTES PERCENT AUTO 6.5 % (2-8); NEUTROPHILS PERCENT AUTO 45.2 % (42.2-75.2); PLATELET COUNT,PLT 153 10^3/uL (150-450); RED BLOOD CELL COUNT 5.16 10^6/uL (4.2-5.4); WHITE BLOOD CELL COUNT,WBC 4.2 10^3/uL (5.0-10.0)
[2023-06-28 02:31] LABS: APPEARANCE,URINE CLEAR (CLEAR); BILIRUBIN,URINE NEGATIVE (NEGATIVE); COLOR,URINE DARK YELLOW (YELLOW); GLUCOSE,URINE NEGATIVE (NEGATIVE); KETONES,URINE NEGATIVE (NEGATIVE); LEUKOCYTE ESTERASE,URINE NEGATIVE (NEGATIVE); NITRITE,URINE NEGATIVE (NEGATIVE); OCCULT BLOOD,URINE TRACE-INTACT (NEGATIVE); PROTEIN,URINE 100 (NEGATIVE); UROBILINOGEN,URINE 0.2 mg/dL (0.2-1.0)
[2023-06-28] MEDS: Ondansetron 4 MG/2 ML SDV IVPUSH ONE (02:31)
[2023-06-28 02:41] LABS: AMORPHOUS SEDIMENT,URINE FEW /HPF (NOT SEEN); BACTERIA,URINE FEW /HPF (0-FEW/HPF); EPITHELIAL CELLS,URINE MODERATE /HPF (NOT SEEN); MUCUS,URINE MANY /LPF (NOT SEEN); RBC,URINE 0-5 /HPF (0-5); WBC,URINE 0-5 /HPF (0-5/HPF)
[2023-06-28 02:42] LABS: AMPHETAMINES,URINE NEGATIVE (NEGATIVE); BARBITURATES,URINE NEGATIVE (NEGATIVE); BENZODIAZEPINE,URINE NEGATIVE (NEGATIVE); MDMA (ECSTASY), URINE NEGATIVE (NEGATIVE); METHADONE,URINE NEGATIVE (NEGATIVE); METHAMPHETAMINES,URINE NEGATIVE (NEGATIVE); OPIATES,URINE NEGATIVE (NEGATIVE); OXYCODONE,URINE NEGATIVE (NEGATIVE); PHENCYCLIDINE,URINE NEGATIVE (NEGATIVE); TCA,URINE NEGATIVE (NEGATIVE)
[2023-06-28 02:47] LABS: A/G RATIO 0.8; ALANINE AMINOTRANSFERASE,ALT 82 U/L (14-59); ALBUMIN 3.5 g/dL (3.4-5.0); ALKALINE PHOSPHATASE 118 U/L (46-116); AMYLASE 41 U/L (25-115); ANION GAP 17.5 mEq/L (7-13); ASPARTATE AMNIOTRANSFERASE,AST 147 U/L (15-37); BILIRUBIN TOTAL 0.6 mg/dL (0.2-1.0); BLOOD UREA NITROGEN,BUN 7 mg/dL (7-18); BUN/CREATININE RATIO 9.5 (No establ ref range); C-REACTIVE PROTEIN 0.06 ng/dL (<=0.30); CALCIUM 8.1 mg/dL (8.5-10.1); CARBON DIOXIDE,CO2 22 mmol/L (21-32); CHLORIDE,CL 108 mmol/L (98-107); CREATININE 0.74 mg/dL (0.55-1.02); ETHANOL BLOOD MEDICAL 181 mg/dL (0); GLUCOSE RANDOM 103 mg/dL (70-99); LIPASE 30 U/L (16-77); POTASSIUM,K 3.5 mmol/L (3.5-5.1); PROTEIN TOTAL,TP 7.8 g/dL (6.4-8.2); SODIUM,NA 144 mmol/L (136-145)
[2023-06-28 02:48] LABS: ESTIMATED GFR 109 mL/min (>=60)
[2023-06-28 02:50] LABS: LACTIC ACID 1.5 mmol/L (0.4-2.0)
[2023-06-28] MEDS: Haloperidol Lactate 5 MG/ML SDV IVPUSH ONE (03:03)
[2023-06-28 03:23] LABS: INR 0.9 (0.9-1.2); PROTHROMBIN TIME 9.7 SEC (9.0-12.0); PTT,PARTIAL THROMBOPLSTIN TIME 26.9 SEC (22.0-34.0)
[2023-06-28] MEDS: Iopamidol 612 MG/ML 100 ML Bottle IVPUSH ONE (03:52)
[2023-06-28 04:40] VITALS: BP 128/107; PULSE 70
== END 2023-06-28 05:13 | disposition home or self-care (01) ==
LOC: DL.ED 02:26
DX: K76.0 Fatty (change of) liver, not elsewhere classified (principal); F10.10 Alcohol abuse, uncomplicated; F12.10 Cannabis abuse, uncomplicated; R11.2 Nausea with vomiting, unspecified; I10 Essential (primary) hypertension; J45.909 Unspecified asthma, uncomplicated; E66.9 Obesity, unspecified; Z68.31 Body mass index [BMI] 31.0-31.9, adult; Z98.890 Other specified postprocedural states
CPT/HCPCS: 36415; 74177; 80053; 80305; 80307; 81001; 81025; 82150; 83605; 83690; 84145; 85025; 85610; 85730; 86140; 96361; 96374; 96375; 99285; C9113; J1630; J2405; J7030; Q9967; 99284; J3490

== ENCOUNTER 2023-08-14 02:22 | Emergency (ER) | payer SELFPAY ==
[2023-08-14 02:33] VITALS: BP 129/98; PULSE 101
[2023-08-14] MEDS ORDERED: Ketorolac 30 MG/ML SDV IM ONE (03:52)
[2023-08-14 03:54] LABS: CORONAVIRUS COVID-19 NAA NEGATIVE (NEGATIVE); INFLUENZA A NAA NEGATIVE (NEGATIVE); INFLUENZA B NAA NEGATIVE (NEGATIVE)
== END 2023-08-14 05:17 | disposition left against medical advice (07) ==
LOC: DL.ED 02:22
DX: F41.9 Anxiety disorder, unspecified (principal); R05.9 Cough, unspecified; F17.210 Nicotine dependence, cigarettes, uncomplicated; Z20.822 Contact with and (suspected) exposure to COVID-19
CPT/HCPCS: 0240U; 96372; 99283; J1885

== ENCOUNTER 2023-09-24 18:11 | Emergency (ER) | payer SELFPAY ==
[2023-09-24 18:31] VITALS: BP 129/100; PULSE 74
[2023-09-24] MEDS ORDERED: Sodium Chloride 0.9% 10 ML Syringe FLUSH PRN (18:31)
[2023-09-24] MEDS ORDERED: Sodium Chloride 0.9% 1,000 ML IV ONE (18:31)
[2023-09-24 18:48] LABS: BASOPHILS PERCENT AUTO 0.4 % (0.0-1.0); EOSINOPHILS PERCENT AUTO 13.2 % (1.0-3.0); HEMATOCRIT 41.1 % (37.0-47.0); HEMOGLOBIN 13.1 g/dL (12.0-16.0); LYMPHOCYTES PERCENT AUTO 29.8 % (20.5-50.1); MEAN CORPUSCULAR HEMOGLOBIN 26.1 pg (27.0-34.0); MEAN CORPUSCULAR HGB CONC 31.9 g/dL (33.0-35.0); MEAN CORPUSCULAR VOLUME 81.9 fL (80-100); MONOCYTES PERCENT AUTO 5.8 % (2-8); NEUTROPHILS PERCENT AUTO 50.8 % (42.2-75.2); PLATELET COUNT,PLT 391 10^3/uL (150-450); RED BLOOD CELL COUNT 5.02 10^6/uL (4.2-5.4); WHITE BLOOD CELL COUNT,WBC 8.4 10^3/uL (5.0-10.0)
[2023-09-24 18:54] LABS: APPEARANCE,URINE CLEAR (CLEAR); BILIRUBIN,URINE NEGATIVE (NEGATIVE); COLOR,URINE YELLOW (YELLOW); GLUCOSE,URINE NEGATIVE (NEGATIVE); KETONES,URINE NEGATIVE (NEGATIVE); LEUKOCYTE ESTERASE,URINE NEGATIVE (NEGATIVE); NITRITE,URINE NEGATIVE (NEGATIVE); OCCULT BLOOD,URINE NEGATIVE (NEGATIVE); PH,URINE 6.5 (5.0-9.0); PROTEIN,URINE NEGATIVE (NEGATIVE); UROBILINOGEN,URINE 0.2 mg/dL (0.2-1.0)
[2023-09-24 18:55] LABS: LACTIC ACID 1.9 mmol/L (0.4-2.0)
[2023-09-24 18:59] LABS: INR 0.9 (0.9-1.2); PROTHROMBIN TIME 9.2 SEC (9.0-12.0); PTT,PARTIAL THROMBOPLSTIN TIME 26.1 SEC (22.0-34.0)
[2023-09-24 19:01] LABS: A/G RATIO 0.7; ALBUMIN 3.4 g/dL (3.4-5.0); BILIRUBIN TOTAL 0.2 mg/dL (0.2-1.0); BUN/CREATININE RATIO 16.7 (No establ ref range); CALCIUM 8.1 mg/dL (8.5-10.1); CREATININE 0.6 mg/dL (0.55-1.02); EST CRCL DRUG DOSING (CG) 114.08 mL/min; MAGNESIUM 2.3 mg/dL (1.8-2.4); TSH ULTRASENSITIVE 1.51 uIU/mL (0.36-3.74)
[2023-09-24 19:03] LABS: AMPHETAMINES,URINE NEGATIVE (NEGATIVE); BARBITURATES,URINE NEGATIVE (NEGATIVE); BENZODIAZEPINE,URINE NEGATIVE (NEGATIVE); MDMA (ECSTASY), URINE NEGATIVE (NEGATIVE); METHADONE,URINE NEGATIVE (NEGATIVE); METHAMPHETAMINES,URINE NEGATIVE (NEGATIVE); OPIATES,URINE NEGATIVE (NEGATIVE); OXYCODONE,URINE NEGATIVE (NEGATIVE); PHENCYCLIDINE,URINE NEGATIVE (NEGATIVE); TCA,URINE NEGATIVE (NEGATIVE)
[2023-09-24] MEDS ORDERED: Ketorolac 30 MG/ML SDV IVPUSH ONE (19:14)
[2023-09-24] MEDS ORDERED: diphenhydrAMINE 50 MG/ML SDV IVPUSH ONE (19:16)
[2023-09-24] MEDS ORDERED: Metoclopramide 10 MG/2 ML SDV IVPUSH ONE (19:16)
== END 2023-09-24 19:34 | disposition home or self-care (01) ==
LOC: DL.ED 18:11
DX: F10.920 Alcohol use, unspecified with intoxication, uncomplicated (principal); G89.29 Other chronic pain; M54.50 Low back pain, unspecified; T50.902A Poisoning by unspecified drugs, medicaments and biological substances, intentional self-harm, initial encounter
CPT/HCPCS: 36415; 80053; 80143; 80179; 80305; 80307; 81003; 81025; 82947; 83605; 83735; 84443; 84484; 85025; 85610; 85730; 93005; 93010; 96374; 96375; 99284; J1200; J1885; J2765; J7030; J3490

== ENCOUNTER 2025-01-27 09:18 | Emergency (ER) | payer SELFPAY ==
[2025-01-27] MEDS: PHENobarbitaL sodium 260 MG in Sodium Chloride 0.9% 100 ML IV PRN ×2 (09:35→11:42)
[2025-01-27 09:45] LABS: BASOPHILS PERCENT AUTO 0.5 % (0.0-1.0); EOSINOPHILS PERCENT AUTO 3.3 % (1.0-3.0); HEMATOCRIT 35.8 % (37.0-47.0); HEMOGLOBIN 11.2 g/dL (12.0-16.0); LYMPHOCYTES PERCENT AUTO 23.8 % (20.5-50.1); MEAN CORPUSCULAR HEMOGLOBIN 22.4 pg (27.0-34.0); MEAN CORPUSCULAR HGB CONC 31.3 g/dL (33.0-35.0); MEAN CORPUSCULAR VOLUME 71.6 fL (80-100); NEUTROPHILS PERCENT AUTO 65.4 % (42.2-75.2); PLATELET COUNT,PLT 192 10^3/uL (150-450); WHITE BLOOD CELL COUNT,WBC 3.7 10^3/uL (5.0-10.0)
[2025-01-27] MEDS: Thiamine 200 MG in Sodium Chloride 0.9% 1,000 ML IV ONE (09:54)
[2025-01-27 10:00] LABS: PROTHROMBIN TIME 10.5 SEC (9.0-12.0)
[2025-01-27 10:06] LABS: A/G RATIO 0.64; ALANINE AMINOTRANSFERASE,ALT 127 U/L (14-59); ALBUMIN 3.2 g/dL (3.4-5.0); ALKALINE PHOSPHATASE 130 U/L (46-116); ANION GAP 15.8 mEq/L (7-13); ASPARTATE AMNIOTRANSFERASE,AST 301 U/L (15-37); BILIRUBIN TOTAL 1.3 mg/dL (0.2-1.0); BLOOD UREA NITROGEN,BUN 7 mg/dL (7-18); BUN/CREATININE RATIO 8.3 (No establ ref range); CALCIUM 8.6 mg/dL (8.5-10.1); CARBON DIOXIDE,CO2 21 mmol/L (21-32); CHLORIDE,CL 106 mmol/L (98-107); CREATININE 0.84 mg/dL (0.55-1.02); ESTIMATED GFR 92 mL/min (>=60); ETHANOL BLOOD MEDICAL 56 mg/dL (0); GLUCOSE RANDOM 109 mg/dL (70-99); MAGNESIUM 1.6 mg/dL (1.8-2.4); POTASSIUM,K 3.8 mmol/L (3.5-5.1); PROTEIN TOTAL,TP 8.2 g/dL (6.4-8.2); SODIUM,NA 139 mmol/L (136-145)
[2025-01-27 10:08] LABS: HCG QUALITATIVE,SERUM NEGATIVE (NEGATIVE)
[2025-01-27 10:11] LABS: LACTIC ACID 3.6 mmol/L (0.4-2.0)
[2025-01-27] MEDS: Sodium Chloride 0.9% 1,000 ML IV SCH (11:43)
[2025-01-27] MEDS: fentaNYL 100 MCG/2 ML SDV IVPUSH ONE (12:49)
[2025-01-27] MEDS: Metoclopramide 10 MG/2 ML SDV IVPUSH ONE (12:49)
[2025-01-27] MEDS: Iopamidol 612 MG/ML 100 ML Bottle IVPUSH ONE (13:22)
[2025-01-27 14:02] LABS: AMPHETAMINES,URINE NEGATIVE (NEGATIVE); BARBITURATES,URINE POSITIVE (NEGATIVE); BENZODIAZEPINE,URINE NEGATIVE (NEGATIVE); MDMA (ECSTASY), URINE NEGATIVE (NEGATIVE); METHADONE,URINE NEGATIVE (NEGATIVE); METHAMPHETAMINES,URINE NEGATIVE (NEGATIVE); OPIATES,URINE NEGATIVE (NEGATIVE); OXYCODONE,URINE NEGATIVE (NEGATIVE); PHENCYCLIDINE,URINE NEGATIVE (NEGATIVE); TCA,URINE NEGATIVE (NEGATIVE)
[2025-01-27] MEDS: LORazepam 2 MG/ML SDV IVPUSH ONE (14:58)
[2025-01-27] MEDS: chlordiazePOXIDE 25 MG Cap PO ONE (14:58)
[2025-01-27 15:23] VITALS: BP 114/77; PULSE 88
== END 2025-01-27 17:06 ==
LOC: DL.ED 09:18
DX: F10.239 Alcohol dependence with withdrawal, unspecified (principal); R10.13 Epigastric pain; Z79.899 Other long term (current) drug therapy; Y90.2 Blood alcohol level of 40-59 mg/100 ml
CPT/HCPCS: 36415; 74177; 80053; 80305; 80307; 82272; 83605; 83735; 84484; 84703; 85025; 85610; 96361; 96365; 96367; 96375; 99284; 99285; A9270; J2060; J2560; J2765; J3010; J3411; J7030; Q9967